=== PATIENT | male | born 1955 | race Caucasian/White ===

== ENCOUNTER 2017-03-26 03:40 | Inpatient (IN) | payer OTHER ==
[~2017-03-26] VITALS: Ht 177.8 cm; Wt 89.6 kg
[~2017-03-26 03:40] MED LIST: NALOXONE HCL 0.4 MG/ML AMP IV PUSH PRN; ONDANSETRON HCL 4 MG/2 ML VIAL IVP PRN; SODIUM CHLOR 0.9% 1000 ML INJ 1,000 ML IV SCH; SODIUM CHLORIDE 0.9% FLUSH 10 ML FLUSH IV FLUSH PRN
[2017-03-26 04:01] VITALS: BP 153/85; PULSE 73; RESP 18; TEMP 98.4; O2SAT 99
[2017-03-26] MEDS ORDERED: MORPHINE SULFATE 2 MG/ML INJ IV PUSH ONE ×2 (05:00→22:45)
[2017-03-26] MEDS ORDERED: MORPHINE SULFATE 2 MG/ML INJ IV PUSH PRN (05:15)
[2017-03-26] MEDS ORDERED: NALOXONE HCL 0.4 MG/ML AMP IV PUSH PRN (05:30)
[2017-03-26] MEDS ORDERED: SODIUM CHLORIDE 0.9% FLUSH 10 ML FLUSH IV FLUSH PRN (05:30)
[2017-03-26] MEDS: ONDANSETRON HCL 4 MG/2 ML VIAL IVP PRN ×2 (05:35→14:13)
[2017-03-26] MEDS: SODIUM CHLOR 0.9% 1000 ML INJ 1,000 ML IV SCH ×3 (05:39→23:42)
[2017-03-26 07:47] VITALS: BP 159/81; PULSE 66; RESP 12; TEMP 95.6; O2SAT 99
--- NOTE | 2017-03-26 08:20 | HHI.HP ---
HPI Service [facility] Hospitalists Primary Care Physician No Primary Care Physician Admission Diagnosis Diagnoses: Chief Complaint: Abdominal pain Travel History International Travel<30 Days: No Contact w/Intl Traveler <30 Da: No Traveled to Known Affected Are: No History of Present Illness This is a pleasant 61 y/o male initially seen at [facility], due to complains of onset of diffuse abdominal pain about 6 PM tonight. He has had significant nausea and vomiting and some diarrhea with this. He rates pain 7-8 out of 10. He denies any prior surgical history. He does smoke cigarettes and drinks alcohol occasionally. He has never had an episode like this before. Seen in his bedroom, stable in the presence of his Mrs. Kat Camilo. Review of Systems Constitutional: DENIES: Fever, Chills, Change in appetite Endocrine: DENIES: Heat/cold intolerance Eyes: DENIES: Blurred vision, Eye pain Gastrointestinal: COMPLAINS OF: Abdominal pain Except as stated in HPI: all other systems reviewed are Neg Past Family Social History Past Medical History Denies significant Past Medical History Past Surgical History NO previous Surgery Reported Medications No previous Medicines Allergies: Coded Allergies: No Known Allergies (Unverified , 03/25/17) Active Ordered Medications Current Medications Medications (Trade) Dose Ordered Sig/Sara Route Start Time Stop Time Status Last Admin Sodium Chloride 1,000 ml @ 100 mls/hr Q10H IV 03/26/17 05:30 03/26/17 05:39 (Morphine Inj) 2 mg Q3H PRN IV PUSH 03/26/17 05:30 (Narcan Inj) 0.4 mg UNSCH PRN IV PUSH 03/26/17 05:30 (Zofran Inj) 4 mg Q6H PRN IVP 03/26/17 05:30 03/26/17 05:35 (NS Flush) 2 ml UNSCH PRN IV FLUSH 03/26/17 05:30 (NS Flush) 2 ml BID IV FLUSH 03/26/17 09:00 (Flu (Quadrivalent) Vaccine Inj) 0.5 ml ONCE ONCE IM 03/27/17 10:00 03/27/17 10:01 Family History Asked and denies. Social History Lives with his Tobacco dependence 1 pack daily 40 Pack year history. Occasional alcohol use Physical Exam Vital Signs Vital Signs Date Time Temp Pulse Resp B/P (MAP) Pulse Ox O2 Delivery O2 Flow Rate FiO2 03/26/17 07:47 95.6 66 12 159/81 (107) 99 03/26/17 04:01 98.4 73 18 153/85 (107) 99 Physical Exam GENERAL: Well-developed, No acute distress. SKIN: Focused skin assessment warm/dry. HEAD: Atraumatic. Normocephalic. EYES: Pupils equal and round. No scleral icterus. No injection or drainage. ENT: No nasal bleeding or discharge. Mucous membranes pink and moist. NECK: Trachea midline. No JVD. CARDIOVASCULAR: Regular rate and rhythm. No murmur appreciated. RESPIRATORY: No accessory muscle use. Clear to auscultation. Breath sounds equal bilaterally. GASTROINTESTINAL: Abdomen soft, moderate diffuse tenderness palpation, nondistended. Hepatic and splenic margins not palpable. No rebound or guarding MUSCULOSKELETAL: No obvious deformities. No clubbing. No cyanosis. No edema. NEUROLOGICAL: Awake and alert. No obvious cranial nerve deficits. Motor grossly within normal limits. Normal speech. PSYCHIATRIC: Appropriate mood and affect; insight and judgment normal. Imaging CT scan of his abdomen and pelvis with IV contrast that revealed small bowel obstruction. Caprini VTE Risk Assessment Caprini VTE Risk Assessment: No/Low Risk (score <= 1) Caprini Risk Assessment Model Point Value = 1 Point Value = 2 Point Value = 3 Point Value = 5 Age 41-60 Minor surgery BMI > 25 kg/m2 Swollen legs Varicose veins or History of unexplained or recurrent spontaneous Oral contraceptives or hormone replacement Sepsis (< 1 month) Serious lung disease, including pneumonia (< 1 month) Abnormal pulmonary function Acute myocardial infarction Congestive heart failure (< 1 month) History of inflammatory bowel disease Medical patient at bed rest Age 61-74 Arthroscopic surgery Major open surgery (> 45 min) Laparoscopic surgery (> 45 min) Malignancy Confined to bed (> 72 hours) Immobilizing plaster cast Central venous access Age >= 75 History of VTE Family history of VTE Factor V Leiden Prothrombin [id number] Lupus anticoagulant Anticardiolipin antibodies Elevated serum homocysteine Heparin-induced thrombocytopenia Other congenital or acquired thrombophilia Stroke (< 1 month) Elective arthroplasty Hip, pelvis, or leg fracture Acute spinal cord injury (< 1 month) Prophylaxis Regimen Total Risk Factor Score Risk Level Prophylaxis Regimen 0-1 Low Early ambulation 2 Moderate Order ONE of the following: *Sequential Compression Device (SCD) *Heparin 5000 units SQ BID 3-4 Higher Order ONE of the following medications: *Heparin 5000 units SQ TID *Enoxaparin/Lovenox 40 mg SQ daily (WT < 150 kg, CrCl > 30 mL/min) *Enoxaparin/Lovenox 30 mg SQ daily (WT < 150 kg, CrCl > 10-29 mL/min) *Enoxaparin/Lovenox 30 mg SQ BID (WT < 150 kg, CrCl > 30 mL/min) AND/OR *Sequential Compression Device (SCD) 5 or more Highest Order ONE of the following medications: *Heparin 5000 units SQ TID (Preferred with Epidurals) *Enoxaparin/Lovenox 40 mg SQ daily (WT < 150 kg, CrCl > 30 mL/min) *Enoxaparin/Lovenox 30 mg SQ daily (WT < 150 kg, CrCl > 10-29 mL/min) *Enoxaparin/Lovenox 30 mg SQ BID (WT < 150 kg, CrCl > 30 mL/min) AND *Sequential Compression Device (SCD) Assessment and Plan Assessment and Plan Small Bowel Obstruction CT scan of his abdomen and pelvis with IV contrast that revealed small bowel obstruction. Discussed by ER Physician at [facility] Armen Muro with General Drum Attendant Doctor Reba who asked to transfer the patient to the main Hospital Patient was given IV fluids, IV Zofran and IV morphine in the emergency department and feels better. Tobacco dependence patient accept Nicotine patch, strongly recommended to stop smoking. DVT prophylaxis with SCDs awaiting if may need procedure. Code Status Full Code. Discussed Condition With Patient and his Mrs. Kat Camilo. Physician Certification 2 Midnight Certification Type: Admission for Inpatient Services Order for Inpatient Services The services are ordered in accordance with Medicare regulations or non- Medicare payer requirements, as applicable. In the case of services not specified as inpatient-only, they are appropriately provided as inpatient services in accordance with the 2-midnight benchmark. Estimated LOS (days): 3 days is the estimated time the patient will need to remain in the hospital, assuming treatment plan goals are met and no additional complications. Post-Hospital Plan: Home Ike Welch MD Mar 26, 2017 8:20 am
[2017-03-26] MEDS: SODIUM CHLORIDE 0.9% FLUSH 10 ML FLUSH IV FLUSH SCH ×2 (08:44→21:00)
[2017-03-26] MEDS ORDERED: SODIUM CHLORIDE 0.9% FLUSH 10 ML FLUSH IV FLUSH SCH (09:00)
[2017-03-26] MEDS: MORPHINE SULFATE 2 MG/ML INJ IV PUSH PRN ×4 (09:15→19:09)
--- NOTE | 2017-03-26 11:06 | PD.CONS ---
cc: Zach Armendariz MD HPI Service General Surgery Consult Requested By Dr. [place] Reason for Consult Small bowel obstruction Primary Care Physician No Primary Care Physician History of Present Illness This is a 61-year-old male with no past medical history who developed severe abdominal pain around 6 PM last night. The patient reports the pain as sharp and radiated a 7 out of 10. The patient does have associated nausea, vomiting and diarrhea. The patient denies any sick contacts. The patient and his had the same meal prior to the onset of abdominal pain. The patient had also ran 3 miles just before onset of abdominal pain. He exercises on a daily basis. A CT abdomen and pelvis was obtained which shows a small bowel obstruction in the proximal bowel with no abscess or pneumoperitoneum. The patient does have a mildly elevated white blood cell count. A General Surgery consultation has been requested for evaluation of small bowel obstruction. Review of Systems Constitutional: COMPLAINS OF: Change in appetite, DENIES: Weight loss Endocrine: DENIES: Polydipsia, Polyuria, Polyphagia Eyes: DENIES: Diplopia Ears, nose, mouth, throat: DENIES: Hearing loss Respiratory: DENIES: Cough Cardiovascular: DENIES: Chest pain, Palpitations Gastrointestinal: COMPLAINS OF: Abdominal pain, Diarrhea, Nausea, Vomiting Genitourinary: DENIES: Urinary frequency, Hematuria Musculoskeletal: DENIES: Joint pain Integumentary: DENIES: Abnormal pigmentation Hematologic/lymphatic: DENIES: Bruising Immunologic/allergic: DENIES: Eczema Neurologic: DENIES: Headache, Localized weakness Psychiatric: DENIES: Mood changes, Depression, Hallucinations Past Family Social History Past Medical History None Past Surgical History None Reported Medications None Allergies: Coded Allergies: No Known Allergies (Unverified , 03/25/17) Active Ordered Medications Current Medications Medications (Trade) Dose Ordered Sig/Sara Route Start Time Stop Time Status Last Admin Sodium Chloride 1,000 ml @ 100 mls/hr Q10H IV 03/26/17 05:30 03/26/17 05:39 (Morphine Inj) 2 mg Q3H PRN IV PUSH 03/26/17 05:30 (Narcan Inj) 0.4 mg UNSCH PRN IV PUSH 03/26/17 05:30 (Zofran Inj) 4 mg Q6H PRN IVP 03/26/17 05:30 03/26/17 05:35 (NS Flush) 2 ml UNSCH PRN IV FLUSH 03/26/17 05:30 (NS Flush) 2 ml BID IV FLUSH 03/26/17 09:00 03/26/17 08:44 (Flu (Quadrivalent) Vaccine Inj) 0.5 ml ONCE ONCE IM 03/27/17 10:00 03/27/17 10:01 Family History No known family history of esophageal, stomach or rectal cancer. Social History Positive tobacco use----1ppd Positive EtOH use; socially--- not daily Denies illicit drug use ; works from home Physical Exam Vital Signs Vital Signs Date Time Temp Pulse Resp B/P (MAP) Pulse Ox O2 Delivery O2 Flow Rate FiO2 03/26/17 07:47 95.6 66 12 159/81 (107) 99 03/26/17 04:01 98.4 73 18 153/85 (107) 99 Physical Exam GENERAL: 61 year old male in minimal acute distress. SKIN: Warm and dry. HEAD: Atraumatic. Normocephalic. EYES: Pupils equal and round. No scleral icterus. No injection or drainage. ENT: No nasal bleeding or discharge. Mucous membranes pink and moist. NECK: Trachea midline. CARDIOVASCULAR: Regular rate and rhythm. RESPIRATORY: No accessory muscle use. Clear to auscultation. Breath sounds equal bilaterally. GASTROINTESTINAL: Abdomen soft, minimally distended; Diffuse abdominal tenderness with palpation. No visible scars on abdomen. MUSCULOSKELETAL: Extremities without clubbing, cyanosis, or edema. No obvious deformities. NEUROLOGICAL: Awake and alert. No obvious cranial nerve deficits. Motor grossly within normal limits. Five out of 5 muscle strength in the arms and legs. Normal speech. PSYCHIATRIC: Appropriate mood and affect; insight and judgment normal. Assessment and Plan Assessment and Plan 61 year old male with abdominal pain; SBO visualized on CT abdomen/pelvis; likely gastroenteritis -Continue IVF -Morphine as needed -Zofran as needed -Okay for ice chips and popsicles -Unlikely small bowel obstruction--- patient has no abdominal surgical history and no mass/tumor identified on CT scan; patient having diarrhea -Discussed with (Kat) -Will continue non operative treatment -Thank you for this consult; We will continue to follow I CERTIFY AND ATTEST THAT I PERSONALLY EXAMINED THE PATIENT. MS MAHAJAN DOCUMENTED OUR VISIT. HIS CLINICAL HISTORY MORE COMPATIBLE WITH VGE - HE STARTED FIRST WITH LOOSE BMS/ DIARRHEA THEN DEVELOPED N/V. REPORTS ABDOMINAL PAIN IS CRAMPY AND LOCALIZED TO HIS ABDOMINAL WALL MUSCLES. HIS BELLY IS SOFT, THERE IS REBOUND OR GUARDING. VITAL SIGNS ARE NORMAL, NO FEVERS. WBC IS ELEVATED. I REVIEWED CT SCAN. I RECOMMENDED OBSERVATION AT THIS TIME. IF HE IMPROVES WILL RESUME DIET. IF HE WORSENS WILL CONSIDER ADDITIONAL TESTING AND/OR LAPAROSCOPY. D/W AND PATIENT AT BEDSIDE AND THEY AGREE. ZACH ARMENDARIZ MD FACS Discussed Condition With Dr. Armendariz Mr. and . Ton Mahajan,Bridget JOY Mar 26, 2017 11:06 Zach Armendariz MD Mar 30, 2017 12:39
[2017-03-26 17:20] VITALS: BP 100/81; PULSE 123; RESP 21; TEMP 95.7; O2SAT 93
[2017-03-26 20:57] VITALS: BP 86/61; PULSE 122; RESP 19; TEMP 97.8; O2SAT 98
[2017-03-26] MEDS ORDERED: SODIUM CHLORID 0.9% 500 ML INJ 500 ML IV ONE (21:30)
[2017-03-26 22:11] VITALS: BP 112/79; PULSE 111; RESP 19; O2SAT 94
[2017-03-26 23:21] LABS: AUTOMATED NEUTROPHIL # 30.4 TH/MM3 (1.8-7.7); BASOPHIL # 0.1 TH/MM3 (0-0.2); BASOPHIL % 0.3 % (0.0-2.0); HEMATOCRIT 63.8 % (39.0-51.0); LYMPH % 4.3 % (9.0-44.0); LYMPHOCYTE # 1.5 TH/MM3 (1.0-4.8); MEAN CELL VOLUME 93.9 FL (80.0-100.0); MEAN CORPUSCULAR HEMOGLOBIN 32.4 PG (27.0-34.0); MEAN CORPUSCULAR HGB CONC 34.5 % (32.0-36.0); MONO % 6.1 % (0.0-8.0); NEUT % 89.3 % (16.0-70.0); PLATELET COUNT 185 TH/MM3 (150-450); RED BLOOD COUNT 6.79 MIL/MM3 (4.50-5.90); RED CELL DISTRIBUTION WIDTH 14.3 % (11.6-17.2); WHITE BLOOD COUNT 34.1 TH/MM3 (4.0-11.0)
[2017-03-26 23:24] LABS: HEMO FLAGS AUTO DIFF
[2017-03-26 23:57] LABS: BANDS 8 % (0-6); CORRECTED NUCLEATED RBC 1 /100 WBC (0-0); NEUTROPHIL # MANUAL DIFF 32.1 TH/MM3 (1.8-7.7); POLYS (SEG NEUTROPHILS) 86 % (16-70); WBC DIFF SAMPLE 100
[2017-03-26 23:59] LABS: SCAN/DIFF FINAL DIFF MANUAL
[2017-03-27] VITALS (12 sets, daily range): BP systolic 102–111; BP diastolic 60–89; PULSE 105–121; RESP 16–35; TEMP 94.1–98.8; O2SAT 93–100
[2017-03-27] LABS: PLATELET ESTIMATE SMEAR NORMAL (NORMAL); PLATELET MORPHOLOGY NORMAL (NORMAL)
[2017-03-27] MEDS: ONDANSETRON HCL 4 MG/2 ML VIAL IVP PRN (03:19)
[2017-03-27] MEDS: MORPHINE SULFATE 2 MG/ML INJ IV PUSH PRN ×3 (03:27→08:50)
[2017-03-27] MEDS: PIPERACIL-TAZO 4.5 GM PREMIX 100 ML IV SCH ×2 (05:30→10:54)
[2017-03-27 06:01] LABS: AUTOMATED NEUTROPHIL # 27.3 TH/MM3 (1.8-7.7); BASOPHIL # 0.1 TH/MM3 (0-0.2); BASOPHIL % 0.3 % (0.0-2.0); HEMATOCRIT 62.9 % (39.0-51.0); LYMPH % 5.1 % (9.0-44.0); LYMPHOCYTE # 1.6 TH/MM3 (1.0-4.8); MEAN CORPUSCULAR HEMOGLOBIN 31.4 PG (27.0-34.0); MEAN CORPUSCULAR HGB CONC 32.7 % (32.0-36.0); NEUT % 88.6 % (16.0-70.0); PLATELET COUNT 220 TH/MM3 (150-450); RED BLOOD COUNT 6.56 MIL/MM3 (4.50-5.90); RED CELL DISTRIBUTION WIDTH 14.3 % (11.6-17.2); WHITE BLOOD COUNT 30.8 TH/MM3 (4.0-11.0)
[2017-03-27 06:04] LABS: HEMO FLAGS AUTO DIFF
[2017-03-27] MEDS: metroNIDAZOLE 500 MG INJ 100 ML IV SCH ×3 (06:05→20:58)
[2017-03-27 07:32] LABS: BICARBONATE 19.6 MEQ/L (21.0-32.0); POTASSIUM 4.4 MEQ/L (3.5-5.1)
[2017-03-27 08:19] LABS: BANDS 13 % (0-6); MYELOCYTES 1 % (0-0); NEUTROPHIL # MANUAL DIFF 27.4 TH/MM3 (1.8-7.7); PLATELET ESTIMATE SMEAR NORMAL (NORMAL); PLATELET MORPHOLOGY NORMAL (NORMAL); POLYS (SEG NEUTROPHILS) 75 % (16-70); SCAN/DIFF FINAL DIFF MANUAL; TOXIC VACUOLATION PRESENT (NONE SEEN); WBC DIFF SAMPLE 100
--- NOTE | 2017-03-27 08:23 | RADRPT ---
EXAM DATE/TIME: 03/27/2017 07:45 [facility] COMPARISON: CT ABDOMEN & PELVIS W CONTRAST, March 26, 2017, 0:23. INDICATIONS : Abdominal pain, concern for obstruction. MEDICAL HISTORY : None. SURGICAL HISTORY : None. ENCOUNTER: Initial ACUITY: 1 day PAIN SCORE: 8/10 LOCATION: Lower abdomen. FINDINGS: Portable supine views of the abdomen show gas distended loops of small bowel throughout the abdomen. The largest loop measures 3 cm in diameter. Gas is seen within the cecum. The colon is not distended. The appearance is similar to the prior study. No organomegaly observed. No abnormal calcifications. Lung bases are clear. Bony structures are unremarkable. CONCLUSION: Unchanged dilatation of the small bowel in a pattern suggesting small bowel obstruction. Alf Floyd Jr., MD on March 27, 2017 at 8:15 Board Certified Radiologist. This report was verified electronically.
--- NOTE | 2017-03-27 08:32 | HHI.PR ---
Subjective Remarks This is a pleasant 61 y/o male initially seen at [facility], due to complains of onset of diffuse abdominal pain about 6 PM tonight. He has had significant nausea and vomiting and some diarrhea with this. He rates pain 7-8 out of 10. He denies any prior surgical history. He does smoke cigarettes and drinks alcohol occasionally. He has never had an episode like this before. Seen in his bedroom, patient uncomfortable, after discuss with nurse in the room and with General Surgery MANNEQUIN DECORATOR the patient increased his WBC count now with left shift and Bands, worsening, with Acute abdomen, seen by General client application support specialist Doctor Maureen and recommended for OR at this time, he is been discussed with Doctor Rachell ID specialist he was started on Zosyn and Metronidazole, he is in Sepsis and early septic Shock, will give IV fluids 2000 ml and as per General Surgery OR this am. Objective Vital Signs Date Time Temp Pulse Resp B/P (MAP) Pulse Ox O2 Delivery O2 Flow Rate FiO2 03/27/17 06:10 20 03/27/17 03:35 113 03/27/17 03:30 108/89 (95) 03/26/17 23:47 20 03/26/17 22:11 111 19 112/79 (90) 94 03/26/17 20:57 97.8 122 19 86/61 (69) 98 03/26/17 17:20 95.7 123 21 100/81 (87) 93 I/O 03/26/17 03/26/17 03/26/17 03/27/17 03/27/17 03/27/17 07:00 15:00 23:00 07:00 15:00 23:00 Intake Total 900 ml 100 ml 100 ml Output Total 200 ml Balance 700 ml 100 ml 100 ml Intake IV Total 900 ml 100 ml 100 ml Output Urine Total 200 ml Bladder Scan Volume Amount 12 ml Result Diagram: 03/27/1752103/27/[address] scan of his abdomen and pelvis with IV contrast that revealed small bowel obstruction. Procedures None Other Results Laboratory Tests Test 03/26/17 23:03 03/27/17 05:22 Nucleated Red Blood Cells 1 /100 WBC Hematology Comments White Blood Count 30.8 TH/MM3 Red Blood Count 6.56 MIL/MM3 Hemoglobin 20.6 GM/DL Hematocrit 62.9 % Mean Corpuscular Volume 96.0 FL Mean Corpuscular Hemoglobin 31.4 PG Mean Corpuscular Hemoglobin Concent 32.7 % Red Cell Distribution Width 14.3 % Platelet Count 220 TH/MM3 Mean Platelet Volume 11.4 FL Neutrophils (%) (Auto) 88.6 % Lymphocytes (%) (Auto) 5.1 % Monocytes (%) (Auto) 6.0 % Eosinophils (%) (Auto) 0.0 % Basophils (%) (Auto) 0.3 % Neutrophils # (Auto) 27.3 TH/MM3 Lymphocytes # (Auto) 1.6 TH/MM3 Monocytes # (Auto) 1.9 TH/MM3 Eosinophils # (Auto) 0.0 TH/MM3 Basophils # (Auto) 0.1 TH/MM3 CBC Comment AUTO DIFF Differential Total Cells Counted 100 Neutrophils % (Manual) 75 % Band Neutrophils % 13 % Lymphocytes % 5 % Monocytes % 6 % Neutrophils # (Manual) 27.4 TH/MM3 Myelocytes 1 % Differential Comment FINAL DIFF MANUAL Toxic Vacuolation PRESENT Platelet Estimate NORMAL Platelet Morphology Comment NORMAL Blood Urea Nitrogen 31 MG/DL Creatinine 3.07 MG/DL Random Glucose 137 MG/DL Calcium Level 8.9 MG/DL Sodium Level 141 MEQ/L Potassium Level 4.4 MEQ/L Chloride Level 108 MEQ/L Carbon Dioxide Level 19.6 MEQ/L Anion Gap 13 MEQ/L Estimat Glomerular Filtration Rate 21 ML/MIN Objective Remarks GENERAL: Well-developed, Severe abdominal pain, and Severe distress. SKIN: Focused skin assessment warm/dry. HEAD: Atraumatic. Normocephalic. EYES: Pupils equal and round. No scleral icterus. No injection or drainage. ENT: No nasal bleeding or discharge. Mucous membranes dry. NECK: Trachea midline. No JVD. CARDIOVASCULAR: Regular rate and rhythm. No murmur appreciated. RESPIRATORY: No accessory muscle use. Clear to auscultation. Breath sounds equal bilaterally. GASTROINTESTINAL: Distended, hard to palpation, self guarding and rebound tenderness positive. MUSCULOSKELETAL: No obvious deformities. No clubbing. No cyanosis. No edema. NEUROLOGICAL: Awake and alert. in severe pain. PSYCHIATRIC: Appropriate mood and affect. Medications and IVs Current Medications Medications (Trade) Dose Ordered Sig/Sara Route Start Time Stop Time Status Last Admin Sodium Chloride 1,000 ml @ 100 mls/hr Q10H IV 03/26/17 05:30 03/26/17 23:42 (Narcan Inj) 0.4 mg UNSCH PRN IV PUSH 03/26/17 05:30 (Zofran Inj) 4 mg Q6H PRN IVP 03/26/17 05:30 03/27/17 03:19 (NS Flush) 2 ml UNSCH PRN IV FLUSH 03/26/17 05:30 (NS Flush) 2 ml BID IV FLUSH 03/26/17 09:00 03/26/17 08:44 (Flu (Quadrivalent) Vaccine Inj) 0.5 ml ONCE ONCE IM 03/27/17 10:00 03/27/17 10:01 (Morphine Inj) 4 mg Q3H PRN IV PUSH 03/26/17 14:30 03/27/17 06:05 Piperacillin Sod/ Tazobactam Sod 100 ml @ 200 mls/hr Q6H IV 03/27/17 06:00 03/27/17 05:30 Metronidazole 100 ml @ 100 mls/hr Q8H IV 03/27/17 05:00 03/27/17 06:05 A/P Assessment and Plan 1. Small Bowel Obstruction CT scan of his abdomen and pelvis with IV contrast that revealed small bowel obstruction. Discussed by ER Physician at [place] doctor Armen Mejia with General Automation Mechanic Doctor Reba who asked to transfer the patient to the main Hospital Seen in his bedroom and discussed with Nurse and with General Surgery MANNEQUIN DECORATOR, at this time Septic patient asked for lactic acid, continue Zosyn and [place]ronidazole[place] [address], developed hypotension, also has Acute Kidney injury, he is not been receiving his IV fluids will give a bolus of 2000 ml of NS for Surgical purposes, asked for Infectious disease specialist, follow blood cultures. 2. Acute Kidney Injury pre renal azotemia giving IV fluids and following renal function, patient dehydrated. Wood cath placed 3. Tobacco dependence patient accept Nicotine patch, strongly recommended to stop smoking. DVT prophylaxis with SCDs awaiting if may need procedure. Code Status Full Code. Discussed Condition With Patient and his Mrs. Kat Camilo.all questions answered to the best of my abilities Discussed with nurse Miss Stovall and General Surgery MANNEQUIN DECORATOR. discussed with Infectious Disease specialist doctor Samara Lovett. Discharge Planning Once cleared by Specialists. Ike Welch MD Mar 27, 2017 08:32
--- NOTE | 2017-03-27 08:34 | HHI.PR ---
cc: Akash Gaffney MD Subjective Subjective Notes DAILY PROGRESS NOTE FOR SURGICAL ATTENDING, DR. AKASH GAFFNEY Restless throughout the night Increased pain Not able to lay flat at bedside Objective Vitals/I&O Vital Signs Date Time Temp Pulse Resp B/P (MAP) Pulse Ox O2 Delivery O2 Flow Rate FiO2 03/27/17 06:10 20 03/27/17 03:35 113 03/27/17 03:30 108/89 (95) 03/26/17 22:11 94 03/26/17 20:57 97.8 Labs Laboratory Tests Test 03/26/17 23:03 03/27/17 05:22 White Blood Count 34.1 30.8 Red Blood Count 6.79 6.56 Hemoglobin 22.0 20.6 Hematocrit 63.8 62.9 Mean Corpuscular Volume 93.9 96.0 Mean Corpuscular Hemoglobin 32.4 31.4 Mean Corpuscular Hemoglobin Concent 34.5 32.7 Red Cell Distribution Width 14.3 14.3 Platelet Count 185 220 Mean Platelet Volume 12.2 11.4 Neutrophils (%) (Auto) 89.3 88.6 Lymphocytes (%) (Auto) 4.3 5.1 Monocytes (%) (Auto) 6.1 6.0 Eosinophils (%) (Auto) 0.0 0.0 Basophils (%) (Auto) 0.3 0.3 Neutrophils # (Auto) 30.4 27.3 Lymphocytes # (Auto) 1.5 1.6 Monocytes # (Auto) 2.1 1.9 Eosinophils # (Auto) 0.0 0.0 Basophils # (Auto) 0.1 0.1 CBC Comment AUTO DIFF AUTO DIFF Differential Total Cells Counted 100 100 Neutrophils % (Manual) 86 75 Band Neutrophils % 8 13 Lymphocytes % 4 5 Monocytes % 2 6 Neutrophils # (Manual) 32.1 27.4 Nucleated Red Blood Cells 1 Differential Comment FINAL DIFF MANUAL FINAL DIFF MANUAL Platelet Estimate NORMAL NORMAL Platelet Morphology Comment NORMAL NORMAL Hematology Comments Myelocytes 1 Toxic Vacuolation PRESENT Blood Urea Nitrogen 31 Creatinine 3.07 Random Glucose 137 Calcium Level 8.9 Sodium Level 141 Potassium Level 4.4 Chloride Level 108 Carbon Dioxide Level 19.6 Anion Gap 13 Estimat Glomerular Filtration Rate 21 Date/Time Source Procedure Growth Status 03/27/17 05:36 Blood Peripheral Aerobic Blood Culture Pending Received 03/27/17 05:36 Blood Peripheral Anaerobic Blood Culture Pending Received Cardiovascular: Regular Lungs: Clear Abdomen: Other (distended; tender throughout ) Extremities: No edema A/P Problem List: (1) Abdominal pain, acute ICD Codes: R10.9 - Unspecified abdominal pain Status: Acute (2) Elevated WBC count ICD Codes: D72.829 - Elevated white blood cell count, unspecified (3) SBO (small bowel obstruction) ICD Codes: K56.609 - Unspecified intestinal obstruction, unspecified as to partial versus complete obstruction Status: Acute (4) Abnormal CT of the abdomen ICD Codes: R93.5 - Abnormal findings on diagnostic imaging of other abdominal regions, including retroperitoneum Status: Acute Assessment and Plan 61 year old male with abdominal pain; CT suggests SBO -NPO -Continue IVF -Continue pain medications -KUB this AM -Unable to lay flat for bladder scan; has not voided since yesterday afternoon -Will insert Wood catheter for accurate I&Os -WBC increase; BUN/Cr increased -Plan for OR intervention this AM -NPO -Obtain consents Attending Statement NOTE FOR SURGICAL ATTENDING, DR. AKASH GAFFNEY Patient has rigid abdomen Diffuse abdominal pain with rebound and guarding. Unable to lay flat because of the rigidity and abdominal pain Elevated white count Low urinary output Discussed with the patient and his at the bedside. Unfortunately he has a clinical picture of possible ischemic bowel plan diagnostic laparoscopy possible open. This was explained to the patient and he asked me to take him to the operating room I agree with above assessment and plan. The exam, history, and the medical decision-making described in the above note were completed with the assistance of the mid-level provider. I reviewed and agree with the findings presented. I attest that I had a [id number] encounter with the patient on the same day, and personally performed and documented my assessment and findings in the medical record. The following services were provided during this hospital visit: Chart data review, vital sign assessments/reviewing monitor data Review of consultations notes if present. Medication orders/review and/or management Ordering and/or reviewing lab tests Ordering and/or interpreting/reviewing x-rays and/or diagnostic studies Care of the patient and discussion of the patient with the care team Documentation time To help prompt me to consider important information that might be impacting today's encounter and assessment, information from prior notes written by myself or my colleagues may have been "brought forward/copy and pasted" into today's note. Problem Qualifiers (1) Elevated WBC count: Qualified Codes: D72.825 - Bandemia Bridget Mahajan Mar 27, 2017 08:34 Akash Gaffney MD Mar 27, 2017 10:19
[2017-03-27] MEDS ORDERED: SODIUM CHLOR 0.9% 1000 ML INJ 1,000 ML IV ONE ×2 (08:45→10:00)
[2017-03-27] MEDS: SODIUM CHLORIDE 0.9% FLUSH 10 ML FLUSH IV FLUSH SCH ×2 (09:00→20:57)
[2017-03-27] MEDS ORDERED: INFLUENZA VIRUS VACCINE (QUADRIVALENT) 0.5 ML SYR IM ONE (10:00)
[2017-03-27] MEDS ORDERED: VASOPRESSIN 20 UNITS/ML VIAL (IVTITR) ONE (10:46)
[2017-03-27 11:25] LABS: BLOOD GAS BASE EXCESS -12.4 mmol/L (-2-2); BLOOD GAS CARBOXYHEMOGLOBIN 1.3 % (0-4); BLOOD GAS HCO3 14 mmol/L (22-26); BLOOD GAS METHEMOGLOBIN 1.2 % (0-2); BLOOD GAS O2 HGB SATURATION 97 % (90-100); BLOOD GAS PCO2 34 mmHg (38-42); BLOOD GAS PO2 244 mmHg (61-120); BLOOD GAS TOTAL HGB 13.6 G/DL (12.0-16.0); CRITICAL VALUE YES; OXYGEN DEVICE VENTILATOR; TEMP CORR TO 98.6
[2017-03-27 11:26] LABS: STAT YES
[2017-03-27] MEDS ORDERED: DO NOT ADM ANY ANTICOAGULANT DRUGS PRN (11:58)
[2017-03-27] MEDS ORDERED: SODIUM CHLORID 0.9% 500 ML INJ 500 ML IV ONE (12:00)
[2017-03-27] MEDS ORDERED: PHENYLEPHRINE HCL 10 MG/ML VIAL IV ONE (12:00)
[2017-03-27] MEDS ORDERED: LACTATED RINGER'S 1000 ML INJ 2,000 ML IV ONE (12:00)
[2017-03-27] MEDS ORDERED: DEXAMETHASONE SOD PHOS 4 MG/ML VIAL IV ONE (12:00)
[2017-03-27] MEDS ORDERED: ROCURONIUM INJ 50 MG/5 ML SYRINGE IV PUSH ONE (12:00)
[2017-03-27] MEDS ORDERED: LIDOCAINE HCL 1% PF 5 ML AMPULE OTHER ONE (12:00)
[2017-03-27] MEDS ORDERED: MIDAZOLAM HCL 2 MG/2 ML VIAL IV ONE (12:00)
[2017-03-27] MEDS ORDERED: PHENYLEPH/NS 1000 MCG/10 ML SYR IV ONE (12:00)
[2017-03-27] MEDS ORDERED: SODIUM CHLOR 0.9% 250 ML INJ 250 ML IV ONE (12:00)
[2017-03-27] MEDS: PANTOPRAZOLE SODIUM 40 MG VIAL IV PUSH SCH (12:00)
[2017-03-27] MEDS ORDERED: PROPOFOL 200 MG/20 ML AMP IV ONE (12:00)
[2017-03-27] MEDS ORDERED: Post-op Orders (for Pharmacy) MISC XX ONE (12:00)
--- NOTE | 2017-03-27 12:11 | HHI.PR ---
cc: Omari Reddy MD Immediate Post Op Note Procedure Date: Mar 27, 2017 Pre Op Diagnosis: (1) Acute renal failure (2) SBO (small bowel obstruction) (3) Abnormal CT of the abdomen (4) Elevated WBC count (5) Abdominal pain, acute Post Op Diagnosis: (1) Ischemic necrosis of small bowel (2) Acute massive necrosis of intestine (3) SBO (small bowel obstruction) (4) Elevated WBC count Surgeon: Omari Reddy Box Stapler(s): Please refer to the OR record Procedure: Exploratory laparotomy Resection of 25-30 cm ischemic necrosis of small bowel Application of temporary abdominal closure device VAC wound therapy Findings: Necrosis of a fair amount of small bowel. One band of adhesions twisting the small bowel Complications: None Specimen(s) removed: Small bowel Estimated blood loss: 50 cc Anesthesia: General Drains: None, Other (VAC device) IVF Tourniquet time (min at mmHg) Please refer to or record Patient to: ISC Patient Condition: Critical Implant/Devices: SEE IMPLANT LOG (if applicable) Date/Time of Procedure: SEE SURGICAL CARE RECORD Omari Reddy MD Mar 27, 2017 12:11
[2017-03-27] MEDS ORDERED: PROPOFOL 1000 MG/100 ML INJ 100 ML ONE (12:14)
[2017-03-27] MEDS ORDERED: TERBUTALINE INJ 1 MG/ML AMP SQ PRN (12:30)
[2017-03-27] MEDS: SODIUM CHLOR 0.9% 1000 ML INJ 1,000 ML IV SCH (12:30)
[2017-03-27] MEDS: PROPOFOL 1000 MG/100 ML IV PRN ×2 (12:30→16:13)
[2017-03-27] MEDS ORDERED: PHENYLEPHRINE 40 MG in D5W 500 ML IV PRN (12:30)
[2017-03-27 12:56] LABS: BLOOD GAS BASE EXCESS -7.1 mmol/L (-2-2); BLOOD GAS CARBOXYHEMOGLOBIN 1.1 % (0-4); BLOOD GAS HCO3 20 mmol/L (22-26); BLOOD GAS METHEMOGLOBIN 1.2 % (0-2); BLOOD GAS O2 HGB SATURATION 97 % (90-100); BLOOD GAS OXYGEN CONTENT 21.4 Vol % (12.0-20.0); BLOOD GAS PCO2 53 mmHg (38-42); BLOOD GAS PO2 174 mmHg (61-120); BLOOD GAS TOTAL HGB 15.5 G/DL (12.0-16.0); CRITICAL VALUE YES; OXYGEN DEVICE VENTILATOR; TEMP CORR TO 98.6
[2017-03-27 12:57] LABS: DRAW SITE ART LINE; FIO2 50 %; STAT NO; VENT SETTINGS IMV14/500PS10
--- NOTE | 2017-03-27 14:14 | EKG ---
Date Performed: 03/27/2017 Time Performed: 10:24:35 PTAGE: 61 years EKG: SINUS TACHYCARDIA NONSPECIFIC ST DEPRESSION ABNORMAL ECG NO PREVIOUS TRACING DOCTOR: Yuval Willson Interpretating Date/Time 03/27/2017 14:13:42
--- NOTE | 2017-03-27 14:16 | RADRPT ---
EXAM DATE/TIME: 03/27/2017 13:28 [place] COMPARISON: No previous studies available for comparison. INDICATIONS : Status post central line placement. MEDICAL HISTORY : None. SURGICAL HISTORY : None. ENCOUNTER: Subsequent ACUITY: 2 days PAIN SCORE: Non-responsive. LOCATION: Bilateral chest FINDINGS: A single portable frontal view of the chest shows an endotracheal tube with the tip 5 cm proximal to shiraz. A right internal jugular vein central venous line with the tip in the superior vena cava. Efe ogastric tube tip courses off the inferior margin of the film. Left basilar atelectasis. Right lung i s clear. No infiltrates or effusions. Heart is normal in size. CONCLUSION: 1. Right-sided central line in good position without pneumothorax. 2. Left basilar atelectasis. Alf Floyd Jr., MD on March 27, 2017 at 14:14 Board Certified Radiologist. This report was verified electronically.
--- NOTE | 2017-03-27 14:23 | MP ---
cc: YEIMYOMARI DATE OF SURGERY 03/27/2017 PREOPERATIVE DIAGNOSIS Acute abdomen, septic shock, elevated white count. POSTOPERATIVE DIAGNOSIS Ischemic necrosis of small bowel, approximately 35 cm of distal jejunum and ileum. PROCEDURE Exploratory laparotomy with resection of small bowel with application of VAC device. ANESTHESIA General. SURGEON Dr. Reddy. INDICATIONS This is a 62-year-old gentleman who was admitted to the hospital. He had a decline over his clinical condition, was thought to be gastroenteritis overnight. He had a markedly elevated white count and creatinine, when I first saw him early in the morning, he was fairly tender and in need of immediate operative intervention. This was arranged as soon as possible in the operating room. In the operating room, the patient did become somewhat unresponsive right before anesthesia. The anesthesiologist intubated the patient and placed a central line, arterial line and was resuscitating. PROCEDURE The patient in the operating room after anesthesia and resuscitation and monitors placed. We make a midline incision to the right of the umbilicus. The abdomen is entered. See he has bloody stained fluid in the abdomen and it is obvious that he has necrosis of a fair amount of small bowel. It appears to be from one adhesion band from the omentum down to the retroperitoneum where the bowel had twisted around this. This was released with harmonic scalpel. Unfortunately, none of the bowel is viable and for this reason stapler was brought around the proximal ischemic part to where a normal appearing bowel is in the distal segment about 30 cm or so. The mesentery is taken down with harmonic scalpel without any bleeding. The specimen is then passed off the field, larger vessel was tied off with silk. The second specimen must be taken at the distal segment as it is still ischemic. We then place the NG tube into the stomach right before the pylorus and explore the abdomen, the liver is smooth, peritoneal surface smooth. The gallbladder had some stones, does not appear to be chronically inflamed. He does have adhesions around the gallbladder. His appendix is normal. His ascending colon appears normal. Down the pelvis I see no other pathology. We then irrigate with 3 liters of warm saline. Because of the clinical status of the patient I do not feel comfortable creating an anastomosis. For this reason we place the temporary abdominal closure device through the VAC device knowing we were coming back for a second look in a couple days. The VAC appliance was applied with a good seal. The patient returned to the recovery room. Stat portable chest x-ray was done. I talked to Dr. Ernesto Kebede, the protection specialist, about assisting in management of this critically ill patient. I talked to the about the critical nature of his illness and the intraoperative findings somewhat unusual in someone who has never had surgery to have an adhesive band causing this untoward event. We are planning on taking him back to the operating room, already discussed with Dr. Manuel Britton, the initial surgeon involved in the care of the patient as I will be out of town on Thursday. This was all explained to the . Omari Reddy MD JKIRAN/LOS /1:50 PM /2:09 PM [email or web address]
[2017-03-27 15:10] LABS: BLOOD GAS BASE EXCESS -4.6 mmol/L (-2-2); BLOOD GAS CARBOXYHEMOGLOBIN 1.1 % (0-4); BLOOD GAS HCO3 21 mmol/L (22-26); BLOOD GAS METHEMOGLOBIN 0.8 % (0-2); BLOOD GAS O2 HGB SATURATION 96 % (90-100); BLOOD GAS PCO2 42 mmHg (38-42); BLOOD GAS PO2 112 mmHg (61-120); BLOOD GAS TOTAL HGB 16.2 G/DL (12.0-16.0); TEMP CORR TO 98.6
[2017-03-27 15:11] LABS: CRITICAL VALUE NO; OXYGEN DEVICE VENTILATOR; VENT SETTINGS SEE COMMENTS
[2017-03-27 15:12] LABS: DRAW SITE ART LINE; FIO2 40 %; STAT NO
--- NOTE | 2017-03-27 15:35 | PD.CONS ---
[facility] Service Critical Care Medicine Consult Requested By General Surgery Reason for Consult Septic Shock Primary Care Physician No Primary Care Physician History of Present Illness 61 y/o man developed septic shock and required emergency small bowel resection for acute abdomen with intestinal infarction. Severe metabolic acidosis and NOELLE complicating care. Ventilator dependent now. Past Family Social History Allergies: Coded Allergies: No Known Allergies (Unverified , 03/25/17) Past Medical History Past Family Social History Past Medical History Denies significant Past Medical History Past Surgical History NO previous Surgery Reported Medications No previous Medicines Allergies: Coded Allergies: No Known Allergies (Unverified , 03/25/17) Active Ordered Medications Physical Exam Vital Signs Vital Signs Date Time Temp Pulse Resp B/P (MAP) Pulse Ox O2 Delivery O2 Flow Rate FiO2 03/27/17 14:15 100 03/27/17 14:15 100 40 03/27/17 14:00 98 18 100/65 (77) 97 Mechanical Ventilator 03/27/17 14:00 40 03/27/17 13:45 98 18 107/62 (77) 97 Mechanical Ventilator 03/27/17 13:30 102 18 110/58 (75) 97 Mechanical Ventilator 03/27/17 13:15 101 18 116/67 (83) 98 Mechanical Ventilator 03/27/17 13:00 103 18 131/63 (85) 98 Mechanical Ventilator 03/27/17 13:00 97 40 03/27/17 12:50 40 03/27/17 12:45 101 18 136/64 (88) 97 Mechanical Ventilator 03/27/17 12:30 102 18 122/62 (82) 96 Mechanical Ventilator 03/27/17 12:15 109 18 131/60 (83) 97 Mechanical Ventilator 03/27/17 12:10 93 50 03/27/17 12:00 105 134/72 03/27/17 11:55 97.6 97 18 119/56 (77) 94 Mechanical Ventilator 03/27/17 11:55 50 03/27/17 09:32 94.1 121 35 111/77 (88) 97 03/27/17 08:00 96.1 119 18 102/76 (85) 97 03/27/17 06:10 20 03/27/17 03:35 113 03/27/17 03:30 108/89 (95) 03/26/17 23:47 20 03/26/17 22:11 111 19 112/79 (90) 94 10/12/17 20:57 97.8 122 19 86/61 (69) 98 03/26/17 17:20 95.7 123 21 100/81 (87) 93 Laboratory Laboratory Tests Test 03/26/17 23:03 03/27/17 05:22 03/27/17 11:05 03/27/17 12:35 White Blood Count 34.1 30.8 Red Blood Count 6.79 6.56 Hemoglobin 22.0 20.6 Hematocrit 63.8 62.9 Mean Corpuscular Volume 93.9 96.0 Mean Corpuscular Hemoglobin 32.4 31.4 Mean Corpuscular Hemoglobin Concent 34.5 32.7 Red Cell Distribution Width 14.3 14.3 Platelet Count 185 220 Mean Platelet Volume 12.2 11.4 Neutrophils (%) (Auto) 89.3 88.6 Lymphocytes (%) (Auto) 4.3 5.1 Monocytes (%) (Auto) 6.1 6.0 Eosinophils (%) (Auto) 0.0 0.0 Basophils (%) (Auto) 0.3 0.3 Neutrophils # (Auto) 30.4 27.3 Lymphocytes # (Auto) 1.5 1.6 Monocytes # (Auto) 2.1 1.9 Eosinophils # (Auto) 0.0 0.0 Basophils # (Auto) 0.1 0.1 CBC Comment AUTO DIFF AUTO DIFF Differential Total Cells Counted 100 100 Neutrophils % (Manual) 86 75 Band Neutrophils % 8 13 Lymphocytes % 4 5 Monocytes % 2 6 Neutrophils # (Manual) 32.1 27.4 Nucleated Red Blood Cells 1 Differential Comment FINAL DIFF MANUAL FINAL DIFF MANUAL Platelet Estimate NORMAL NORMAL Platelet Morphology Comment NORMAL NORMAL Hematology Comments Myelocytes 1 Toxic Vacuolation PRESENT Blood Urea Nitrogen 31 Creatinine 3.07 Random Glucose 137 Calcium Level 8.9 Sodium Level 141 Potassium Level 4.4 Chloride Level 108 Carbon Dioxide Level 19.6 Anion Gap 13 Estimat Glomerular Filtration Rate 21 Blood Gas Puncture Site DRAWN IN OR ART LINE Blood Gas Patient Temperature 98.6 98.6 Blood Gas HCO3 14 20 Blood Gas Base Excess -12.4 -7.1 Blood Gas Oxygen Saturation 97 97 Arterial Blood pH 7.23 7.19 Arterial Blood Partial Pressure CO2 34 53 Arterial Blood Partial Pressure O2 244 174 Arterial Blood Oxygen Content 19.0 21.4 Arterial Blood Carboxyhemoglobin 1.3 1.1 Arterial Blood Methemoglobin 1.2 1.2 Blood Gas Hemoglobin 13.6 15.5 Oxygen Delivery Device VENTILATOR VENTILATOR Blood Gas Ventilator Setting [id number] Blood Gas Inspired Oxygen 50 Test 03/27/17 15:00 Blood Gas Puncture Site ART LINE Blood Gas Patient Temperature 98.6 Blood Gas HCO3 21 Blood Gas Base Excess -4.6 Blood Gas Oxygen Saturation 96 Arterial Blood pH 7.31 Arterial Blood Partial Pressure CO2 42 Arterial Blood Partial Pressure O2 112 Arterial Blood Oxygen Content 22.0 Arterial Blood Carboxyhemoglobin 1.1 Arterial Blood Methemoglobin 0.8 Blood Gas Hemoglobin 16.2 Oxygen Delivery Device VENTILATOR Blood Gas Ventilator Setting SEE COMMENTS Blood Gas Inspired Oxygen 40 Date/Time Source Procedure Growth Status 03/27/17 05:36 Blood Peripheral Aerobic Blood Culture Pending Received 03/27/17 05:36 Blood Peripheral Anaerobic Blood Culture Pending Received Result Diagram: 03/27/1752103/27/17521 Imaging Head: Normal. Neck: Supple, orally intubated. Lungs: Clear, no adventitious sounds. Good excursions on vent. Heart: NL S1S2m RRR, no m,r. No JVD. Abdomen: Binder in place. Postsurgical. Quiet. Extremities: Tepid, adequately perfused. Neuro: Moves 4 limbs spontaneously. Breathes over vent. ORTIZ Assessment and Plan Problem List: (1) Septic shock ICD Code: A41.9 - Sepsis, unspecified organism; R65.21 - Severe sepsis with septic shock Status: Acute (2) Acute massive necrosis of intestine ICD Code: K55.069 - Acute infarction of intestine, part and extent unspecified Status: Acute (3) Acute respiratory failure ICD Code: J96.00 - Acute respiratory failure, unspecified whether with hypoxia or hypercapnia Status: Acute (4) Metabolic acidosis ICD Code: E87.2 - Acidosis Status: Acute (5) SBO (small bowel obstruction) ICD Code: K56.609 - Unspecified intestinal obstruction, unspecified as to partial versus complete obstruction Status: Acute (6) Acute renal failure ICD Code: N17.9 - Acute kidney failure, unspecified Status: Acute Assessment and Plan Plan: 1. PRVC vent mode. 2. Fentanyl analgesia. 3. Propofol sedation. 4. Bicarb gtt. 5. NG to LIS. 6. Pepcid. 7. SCDs. 8. Plan 2nd look after 48 hours. Overall impression: Critically ill with septic shock and acute organ dysfunction , including renal and respiratory failure. Will require additional surgery over next 24-48 hours. Critical Care 45 mins Rudy Erazo MD Mar 27, 2017 15:35
[2017-03-27] MEDS ORDERED: SODIUM BICARBONATE 8.4% INJ 150 MEQ in WATER STERILE FOR INJ 850 ML IV SCH (16:00)
[2017-03-27] MEDS: fentaNYL DRIP 250 ML IV PRN (16:14)
[2017-03-27 17:47] LABS: BICARBONATE 24.3 MEQ/L (21.0-32.0); POTASSIUM 4.2 MEQ/L (3.5-5.1)
[2017-03-27 18:02] LABS: CALCIUM-PROTEIN CORRECTED 8.5 MG/DL (8.5-10.1)
[2017-03-27] MEDS: PIPERACIL-TAZO 3.375 GM PREMIX 50 ML IV SCH (18:12)
[2017-03-27] MEDS: CHLORHEXIDINE 0.12% (ORAL KIT) 15 ML CUP MT SCH (20:56)
[2017-03-27] MEDS: PROPOFOL 1000 MG/100 ML INJ 100 ML IV PRN (22:23)
[2017-03-28] VITALS (19 sets, daily range): BP systolic 113–123; BP diastolic 68–79; PULSE 88–108; RESP 16–17; TEMP 98.8–99.7; O2SAT 94–97
[2017-03-28] MEDS: PIPERACIL-TAZO 3.375 GM PREMIX 50 ML IV SCH ×5 (00:21→23:55)
[2017-03-28] MEDS: metroNIDAZOLE 500 MG INJ 100 ML IV SCH ×3 (04:28→20:28)
[2017-03-28 05:09] LABS: AUTOMATED NEUTROPHIL # 18.9 TH/MM3 (1.8-7.7); BASOPHIL # 0.1 TH/MM3 (0-0.2); BASOPHIL % 0.2 % (0.0-2.0); HEMATOCRIT 43.8 % (39.0-51.0); LYMPH % 4.7 % (9.0-44.0); MEAN CELL VOLUME 93.5 FL (80.0-100.0); MEAN CORPUSCULAR HEMOGLOBIN 31.5 PG (27.0-34.0); MEAN CORPUSCULAR HGB CONC 33.7 % (32.0-36.0); MONO % 7.1 % (0.0-8.0); PLATELET COUNT 135 TH/MM3 (150-450); RED BLOOD COUNT 4.69 MIL/MM3 (4.50-5.90); RED CELL DISTRIBUTION WIDTH 13.6 % (11.6-17.2); WHITE BLOOD COUNT 21.5 TH/MM3 (4.0-11.0)
[2017-03-28 05:12] LABS: BLOOD GAS BASE EXCESS 0.2 mmol/L (-2-2); BLOOD GAS HCO3 25 mmol/L (22-26); BLOOD GAS METHEMOGLOBIN 0.9 % (0-2); BLOOD GAS O2 HGB SATURATION 97 % (90-100); BLOOD GAS OXYGEN CONTENT 20.4 Vol % (12.0-20.0); BLOOD GAS PCO2 44 mmHg (38-42); BLOOD GAS PO2 141 mmHg (61-120); BLOOD GAS TOTAL HGB 14.8 G/DL (12.0-16.0); CRITICAL VALUE NO; FIO2 40 %; OXYGEN DEVICE VENTILATOR; TEMP CORR TO 98.6
[2017-03-28 05:13] LABS: DRAW SITE ALINE; STAT NO
[2017-03-28] MEDS: PROPOFOL 1000 MG/100 ML INJ 100 ML IV PRN ×4 (05:13→21:07)
[2017-03-28] MEDS: SODIUM CHLOR 0.9% 1000 ML INJ 1,000 ML IV SCH ×3 (05:13→17:52)
[2017-03-28 05:16] LABS: HEMO FLAGS AUTO DIFF
[2017-03-28 05:31] LABS: BICARBONATE 26.2 MEQ/L (21.0-32.0); POTASSIUM 4.4 MEQ/L (3.5-5.1)
[2017-03-28 05:36] LABS: INDIRECT BILIRUBIN 0.4 MG/DL (0.0-0.8); TOTAL BILIRUBIN ADULT 0.8 MG/DL (0.2-1.0)
[2017-03-28] MEDS: CHLORHEXIDINE 0.12% (ORAL KIT) 15 ML CUP MT SCH ×2 (07:17→20:28)
[2017-03-28 08:08] LABS: BANDS 19 % (0-6); NEUTROPHIL # MANUAL DIFF 18.7 TH/MM3 (1.8-7.7); POLYS (SEG NEUTROPHILS) 68 % (16-70); WBC DIFF SAMPLE 100
[2017-03-28 08:09] LABS: PLATELET ESTIMATE SMEAR LOW (NORMAL); PLATELET MORPHOLOGY NORMAL (NORMAL); SCAN/DIFF FINAL DIFF MANUAL
[2017-03-28] MEDS: SODIUM CHLORIDE 0.9% FLUSH 10 ML FLUSH IV FLUSH SCH ×2 (09:00→20:28)
--- NOTE | 2017-03-28 09:48 | HHI.CCPN ---
Subjective Remarks/Hospital Course 61 y/o man developed septic shock and required emergency small bowel resection for acute abdomen with intestinal infarction. Severe metabolic acidosis and NOELLE complicating care. Ventilator dependent now. 03/28: Warm, well perfused. Urine output acceptable. Renal function slowly improving but still considerably impaired. Objective Vital Signs Date Time Temp Pulse Resp B/P (MAP) Pulse Ox O2 Delivery O2 Flow Rate FiO2 03/28/17 09:06 95 30 03/28/17 08:00 105 03/28/17 08:00 99.7 16 120/79 (93) Arterial Line 03/28/17 07:00 Mechanical Ventilator Intake and Output 03/28/17 03/28/17 03/29/17 08:00 16:00 00:00 Intake Total 1998.5 ml 700 ml Output Total 840 ml Balance 1158.5 ml 700 ml Result Diagram: 03/28/17 0455 03/28/17 0455 Other Results Laboratory Tests Test 03/27/17 11:05 03/27/17 12:35 03/27/17 15:00 03/28/17 04:57 Blood Gas Puncture Site DRAWN IN OR ART LINE ART LINE PABLO Blood Gas Patient Temperature 98.6 98.6 98.6 98.6 Blood Gas HCO3 14 mmol/L (22-26) 20 mmol/L (22-26) 21 mmol/L (22-26) 25 mmol/L (22-26) Blood Gas Base Excess -12.4 mmol/L (-2-2) -7.1 mmol/L (-2-2) -4.6 mmol/L (-2-2) 0.2 mmol/L (-2-2) Blood Gas Oxygen Saturation 97 % (90-100) 97 % (90-100) 96 % (90-100) 97 % ( 90-100) Arterial Blood pH 7.23 (7.380-7.420) 7.19 (7.380-7.420) 7.31 (7.380-7.420) 7.37 (7.380-7.420) Arterial Blood Partial Pressure CO2 34 mmHg (38-42) 53 mmHg (38-42) 42 mmHg (38-42) 44 mmHg (38-42) Arterial Blood Partial Pressure O2 244 mmHg (61-120) 174 mmHg (61-120) 112 mmHg (61-120) 141 mmHg (61-120) Arterial Blood Oxygen Content 19.0 Vol % (12.0-20.0) 21.4 Vol % (12.0-20.0) 22.0 Vol % (12.0-20.0) 20.4 Vol % (12.0-20.0) Arterial Blood Carboxyhemoglobin 1.3 % (0-4) 1.1 % (0-4) 1.1 % (0-4) 1.0 % (0-4) Arterial Blood Methemoglobin 1.2 % (0-2) 1.2 % (0-2) 0.8 % (0-2) 0.9 % (0-2) Blood Gas Hemoglobin 13.6 G/DL (12.0-16.0) 15.5 G/DL (12.0-16.0) 16.2 G/DL (12.0-16.0) 14.8 G/DL (12.0-16.0) Oxygen Delivery Device VENTILATOR VENTILATOR VENTILATOR VENTILATOR Blood Gas Ventilator Setting [id number] SEE COMMENTS SEE COMMENT Blood Gas Inspired Oxygen % 50 % 40 % 40 % Imaging Head: Normal. Neck: Supple, orally intubated. Lungs: Clear, no adventitious sounds. Good excursions on vent. Heart: NL S1S2m RRR, no m,r. No JVD. Abdomen: Binder in place. Postsurgical. Quiet. Not distended. Extremities: Warm, well perfused. Neuro: Moves 4 limbs spontaneously. Breathes over vent. ORTIZ Opens eyes, tracks. A/P Problem List: (1) Septic shock ICD Code: A41.9 - Sepsis, unspecified organism; R65.21 - Severe sepsis with septic shock Status: Acute (2) Acute massive necrosis of intestine ICD Code: K55.069 - Acute infarction of intestine, part and extent unspecified Status: Acute (3) Acute respiratory failure ICD Code: J96.00 - Acute respiratory failure, unspecified whether with hypoxia or hypercapnia Status: Acute (4) Metabolic acidosis ICD Code: E87.2 - Acidosis Status: Acute (5) SBO (small bowel obstruction) ICD Code: K56.609 - Unspecified intestinal obstruction, unspecified as to partial versus complete obstruction Status: Acute (6) Acute renal failure ICD Code: N17.9 - Acute kidney failure, unspecified Status: Acute Assessment and Plan Plan: 1. PRVC vent mode. 2. Fentanyl analgesia. 3. Propofol sedation. 4. Bicarb gtt. 5. NG to LIS. 6. Pepcid. 7. SCDs. 8. Plan 2nd look after 48 hours. 9. D/C bicarb gtt and increase maintenance iv. Overall impression: Remains critically ill with septic shock and acute organ dysfunction, including renal and respiratory failure. Will require additional surgery over next 24 hours. Renal function remains impaired, but better. Requires mechanical ventilation. Critical Care 39 mins Rudy Erazo MD Mar 28, 2017 09:48
[2017-03-28] MEDS: PANTOPRAZOLE SODIUM 40 MG VIAL IV PUSH SCH (12:05)
[2017-03-28] MEDS: fentaNYL DRIP 250 ML IV PRN (12:06)
[2017-03-28 16:16] LABS: BICARBONATE 28.5 MEQ/L (21.0-32.0)
[2017-03-29] VITALS (18 sets, daily range): BP systolic 102–146; BP diastolic 58–85; PULSE 63–114; RESP 12–21; TEMP 97.3–99.4; O2SAT 92–100
--- NOTE | 2017-03-29 01:15 | HHI.PR ---
Subjective Subjective Notes late entry note from 03/28/17 intubated/sedated Objective Vitals/I&O Vital Signs Date Time Temp Pulse Resp B/P (MAP) Pulse Ox O2 Delivery O2 Flow Rate FiO2 03/29/17 00:00 97.5 87 16 102/60 (74) 95 03/29/17 00:00 30 03/28/17 19:00 Mechanical Ventilator Labs Laboratory Tests Test 03/28/17 04:55 03/28/17 04:57 03/28/17 15:30 White Blood Count 21.5 Red Blood Count 4.69 Hemoglobin 14.8 Hematocrit 43.8 Mean Corpuscular Volume 93.5 Mean Corpuscular Hemoglobin 31.5 Mean Corpuscular Hemoglobin Concent 33.7 Red Cell Distribution Width 13.6 Platelet Count 135 Mean Platelet Volume 11.3 Neutrophils (%) (Auto) 88.0 Lymphocytes (%) (Auto) 4.7 Monocytes (%) (Auto) 7.1 Eosinophils (%) (Auto) 0.0 Basophils (%) (Auto) 0.2 Neutrophils # (Auto) 18.9 Lymphocytes # (Auto) 1.0 Monocytes # (Auto) 1.5 Eosinophils # (Auto) 0.0 Basophils # (Auto) 0.1 CBC Comment AUTO DIFF Differential Total Cells Counted 100 Neutrophils % (Manual) 68 Band Neutrophils % 19 Lymphocytes % 6 Monocytes % 7 Neutrophils # (Manual) 18.7 Differential Comment FINAL DIFF MANUAL Platelet Estimate LOW Platelet Morphology Comment NORMAL Blood Urea Nitrogen 42 34 Creatinine 2.61 1.83 Random Glucose 114 106 Total Protein 4.9 Albumin 2.2 Calcium Level 7.9 8.0 Alkaline Phosphatase 34 Aspartate Amino Transf (AST/SGOT) 60 Alanine Aminotransferase (ALT/SGPT) 32 Total Bilirubin 0.8 Direct Bilirubin 0.4 Sodium Level 142 143 Potassium Level 4.4 4.0 Chloride Level 108 109 Carbon Dioxide Level 26.2 28.5 Anion Gap 8 6 Estimat Glomerular Filtration Rate 25 38 Indirect Bilirubin 0.4 Blood Gas Puncture Site PABLO Blood Gas Patient Temperature 98.6 Blood Gas HCO3 25 Blood Gas Base Excess 0.2 Blood Gas Oxygen Saturation 97 Arterial Blood pH 7.37 Arterial Blood Partial Pressure CO2 44 Arterial Blood Partial Pressure O2 141 Arterial Blood Oxygen Content 20.4 Arterial Blood Carboxyhemoglobin 1.0 Arterial Blood Methemoglobin 0.9 Blood Gas Hemoglobin 14.8 Oxygen Delivery Device VENTILATOR Blood Gas Ventilator Setting SEE COMMENT Blood Gas Inspired Oxygen 40 Date/Time Source Procedure Growth Status 03/27/17 05:36 Blood Peripheral Aerobic Blood Culture - Preliminary NO GROWTH IN 1 DAY Resulted 03/27/17 05:36 Blood Peripheral Anaerobic Blood Culture - Preliminary NO GROWTH IN 1 DAY Resulted Abdomen: Non-distended, Non-tender Wound Wound : Wound Location: Abdomen Appearance: Clean & Dry Dressing: VAC A/P Problem List: (1) Abdominal pain, acute ICD Codes: R10.9 - Unspecified abdominal pain Status: Acute (2) Elevated WBC count ICD Codes: D72.829 - Elevated white blood cell count, unspecified (3) SBO (small bowel obstruction) ICD Codes: K56.609 - Unspecified intestinal obstruction, unspecified as to partial versus complete obstruction Status: Acute (4) Abnormal CT of the abdomen ICD Codes: R93.5 - Abnormal findings on diagnostic imaging of other abdominal regions, including retroperitoneum Status: Acute Assessment and Plan 61yo male s/p ExLap for SBO and necrotic small bowel, doing well. OK for OR tomorrow for ExLap, possible abdominal closure (Dr. Britton) continue current supportive care, d/w family at bedside Problem Qualifiers (1) Elevated WBC count: Qualified Codes: D72.825 - Bandemia Grant Blake MD Mar 29, 2017 01:15
[2017-03-29] MEDS: PROPOFOL 1000 MG/100 ML INJ 100 ML IV PRN (02:01)
[2017-03-29] MEDS: SODIUM CHLOR 0.9% 1000 ML INJ 1,000 ML IV SCH ×3 (03:04→18:16)
[2017-03-29 04:07] LABS: BICARBONATE 29.6 MEQ/L (21.0-32.0)
[2017-03-29] MEDS: metroNIDAZOLE 500 MG INJ 100 ML IV SCH ×3 (04:33→20:56)
[2017-03-29] MEDS: PIPERACIL-TAZO 3.375 GM PREMIX 50 ML IV SCH ×3 (05:49→18:16)
--- NOTE | 2017-03-29 07:47 | EKG ---
Date Performed: 03/29/2017 Time Performed: 00:31:38 PTAGE: 61 years EKG: Sinus rhythm . Lateral T wave changes are nonspecific Borderline ECG Compared to prior electrocardiogram, rate has decreased PREVIOUS TRACING : 03/27/2017 10.24 DOCTOR: Flavio Boone Interpretating Date/Time 03/29/2017 07:46:16
[2017-03-29] MEDS: CHLORHEXIDINE 0.12% (ORAL KIT) 15 ML CUP MT SCH ×2 (08:00→20:00)
[2017-03-29] MEDS: SODIUM CHLORIDE 0.9% FLUSH 10 ML FLUSH IV FLUSH SCH ×2 (08:23→20:56)
[2017-03-29] MEDS: fentaNYL DRIP 250 ML IV PRN (10:14)
--- NOTE | 2017-03-29 10:22 | HHI.CCPN ---
Subjective Remarks/Hospital Course 61 y/o man developed septic shock and required emergency small bowel resection for acute abdomen with intestinal infarction. Severe metabolic acidosis and NOELLE complicating care. Ventilator dependent now. 03/28: Warm, well perfused. Urine output acceptable. Renal function slowly improving but still considerably impaired. 03/29: Urine output acceptable and he remains well perfused. Abdomen is open and he is suitably prepared for return to OR today. Objective Vital Signs Date Time Temp Pulse Resp B/P (MAP) Pulse Ox O2 Delivery O2 Flow Rate FiO2 03/29/17 10:00 63 03/29/17 09:42 100 30 03/29/17 08:00 99.2 16 106/58 (74) 03/29/17 07:00 Mechanical Ventilator Intake and Output 03/29/17 03/29/17 03/30/17 08:00 16:00 00:00 Intake Total 1828.4 ml 1250 ml Output Total 1050 ml 725 ml Balance 778.4 ml 525 ml Result Diagram: 03/28/17 0455 03/29/17 0245 Imaging Head: Normal. Neck: Supple, orally intubated. Lungs: Clear, no adventitious sounds. Good excursions on vent. Heart: NL S1S2m RRR, no m,r. No JVD. Abdomen: Binder in place. Postsurgical. Quiet. Not distended. Extremities: Warm, well perfused. Trace generalized edema. Neuro: Moves 4 limbs spontaneously. Breathes over vent. ORTIZ Opens eyes, tracks. A/P Problem List: (1) Septic shock ICD Code: A41.9 - Sepsis, unspecified organism; R65.21 - Severe sepsis with septic shock Status: Acute (2) Acute massive necrosis of intestine ICD Code: K55.069 - Acute infarction of intestine, part and extent unspecified Status: Acute (3) Acute respiratory failure ICD Code: J96.00 - Acute respiratory failure, unspecified whether with hypoxia or hypercapnia Status: Acute (4) Metabolic acidosis ICD Code: E87.2 - Acidosis Status: Acute (5) SBO (small bowel obstruction) ICD Code: K56.609 - Unspecified intestinal obstruction, unspecified as to partial versus complete obstruction Status: Acute (6) Acute renal failure ICD Code: N17.9 - Acute kidney failure, unspecified Status: Acute Assessment and Plan Plan: 1. PRVC vent mode. 2. Fentanyl analgesia. 3. Propofol sedation. 4. Bicarb gtt. 5. NG to LIS. 6. Pepcid. 7. SCDs. 8. Plan 2nd look after 48 hours. 9. D/C bicarb gtt and increase maintenance iv. 10. Return to OR for abdominal closure. Overall impression: Remains critically ill with resolving septic shock and acute organ dysfunction, including renal and respiratory failure. Will require additional surgery today. Renal function remains impaired, but improving. Requires mechanical ventilation, unable to wean yet.. Critical Care 34 mins Rudy Erazo MD Mar 29, 2017 10:22
[2017-03-29] MEDS ORDERED: ROCURONIUM INJ 50 MG/5 ML SYRINGE IV PUSH ONE (12:00)
[2017-03-29] MEDS ORDERED: PROPOFOL 200 MG/20 ML AMP IV ONE (12:00)
[2017-03-29] MEDS: PANTOPRAZOLE SODIUM 40 MG VIAL IV PUSH SCH (12:15)
--- NOTE | 2017-03-29 16:26 | MP ---
cc: ZACH ARMENDARIZ M.D., JOSEPH D. M.D. DATE OF SURGERY: 03/29/2017. PREOPERATIVE DIAGNOSIS: Open abdomen status post small bowel resection for ischemic bowel. POSTOPERATIVE DIAGNOSIS: Open abdomen status post small bowel resection for ischemic bowel. OPERATIVE PROCEDURE PERFORMED: 1. Exploratory laparotomy. 2. Small bowel anastomosis (stapled). 3. Incision and drainage of abdominal cavity. 4. Primary closure of the abdomen. SURGEON: Zach Armendariz MD. TOWER CLEANER: Marcelo. ANESTHESIA: General endotracheal anesthesia. COMPLICATIONS: None. INDICATIONS FOR THE PROCEDURE: Mr. Jauregui is a very pleasant 61-year-old gentleman who presented to the hospital on 03/26/2017 nausea, vomiting and abdominal pain. At that time, the patient was doing fairly well clinically. He had a CT scan that was concerning for possible bowel obstruction, although he had no previous abdominal surgery. The patient was admitted to the hospital and observed. Over the next 24 hours, the patient suffered a clinical decline. His white blood cell count went up markedly. His abdominal pain worsened significant and he was found to be oliguric. He was taken immediately to the operating room by Dr. Omari Reddy for exploratory laparotomy. At that time, the patient was in septic shock and Dr. Reddy found a large portion of jejunum that was necrotic from a band adhesion. Dr. Reddy resected the bowel but did not put it back together due the patient's sepsis and instability. He placed a temporary abdominal closure device (VAC) and planned to bring the patient back in 48 hours for re-exploration and possible anastomosis. This was all discussed the patient's and family, and they were agreeable. The patient returns today for re-exploration and possible anastomosis. INTRAOPERATIVE FINDINGS: Small bowel was completely viable and pink. It was seen to be peristalsing. There were no ischemic changes on either end. We measured out 300 cm of small bowel. Dr. Reddy had already put the two loops together with some silk sutures and we left this intact and went ahead and just did the anastomosis right where he had planned it. We did suck out about 500 cc of succus entericus via the nasogastric tube by milking the small bowel back in a retrograde fashion. The remainder of the abdomen was completely normal. The patient did have a mildly distended gallbladder but there was no inflammatory change noted around it. The remaining portions of the colon and stomach all looked viable and healthy. NG tube was positioned well along the greater curvature of the stomach right up to the pylorus. DESCRIPTION OF THE PROCEDURE IN DETAIL: The patient was identified, brought to the operating room and placed supine on the operating table. After adequate general endotracheal anesthesia was achieved, the abdominal dressing was removed. The VAC was removed. The skin and abdominal wall was prepped and draped in the standard surgical fashion using Betadine. Attention was directed to the intestine, which was carefully removed from the abdominal cavity. Some light filmy adhesions were taken down with blunt dissection. The entire small bowel was then run from the ligament of Treitz to where Dr. Reddy had sutured it to the distal segment. Both segments were completely viable. The distal small bowel seemed to be actively peristalsing. Proximal the bowel was mildly dilated but overall appeared healthy and pink. There was no ecchymosis and no ischemic changes. We measured out the remaining small bowel and got 20 15 cm segments using the surgical ruler for a total of 300 cm of small bowel. At this point, we went ahead and milked the small bowel back proximally via the NG tube and got out about 500 mL of succus entericus. We then rinsed the small bowel off with 2 liters of warm saline solution. This was agitated in the abdominal cavity in order to cleanse it. Once we did this, attention was directed to the anastomosis. Towels were placed around the small bowel and two anterior enterotomies were made. Succus entericus was suctioned out with the suction device. A JOS 55 stapler was then fired down the two antimesenteric borders of the small bowel. The anastomosis was inspected and there was no bleeding. The enterotomies were then closed using Allis clamps and a TA-55 stapling device. The staple line was then oversewn with 3-0 GI silks. The distal segment was also closed with a 3-0 GI silk. With this, the anastomosis was widely patent. The TA staple line was completely inverted and under no tension. The previous staple lines Dr. Reddy had performed were inspected, and there was no evidence of leakage of air and dee appeared to be intact. Next attention was turned to closure of the mesenteric defect. The mesenteric defect was closed with interrupted 3-0 GI silks in a [id number] fashion. Once we did this, the small bowel was returned to its anatomic position in the abdominal cavity. Again, it was rinsed out with another 2 liters of warm saline solution. The NG tube was then palpated within the stomach and confirmed to be along the greater curvature. It was advanced slightly until it abutted the pylorus. We re-inspected the anastomosis one more time. The anastomosis was widely patent. There was no evidence of a leak. All staple lines were inverted and under no tension. The small bowel was then returned to its anatomic position in the abdominal cavity. The rest the abdomen was gently palpated and inspected. The colon appeared viable and there were no abnormalities noted. The gallbladder was noted be distended but not tense and no inflammatory changes or ischemic changes were noted. The liver was smooth. The stomach was viable with the NG tube in place. At this point I felt confident with the abdominal cavity. We rinsed it out one more time with one liter of warm saline solution. All areas of concern had been addressed. Attention was now directed to closure. A piece of Seprafilm was placed on the small bowel anteriorly as the patient had no significant omentum to cover the bowel during the closure. The abdomen was then closed with a #1 looped PDS. Subcutaneous tissue was copiously irrigated and closed with a skin stapling device. The patient tolerated the procedure well, was awake and brought to recovery in stable condition. Estimated blood loss was minimal. MD DAY Montano/ITZEL /11:46 AM /4:08 PM BEAN
[2017-03-29 16:51] LABS: BICARBONATE 28.3 MEQ/L (21.0-32.0); POTASSIUM 3.9 MEQ/L (3.5-5.1)
[2017-03-29 17:20] LABS: CALCIUM-PROTEIN CORRECTED 8.6 MG/DL (8.5-10.1)
[2017-03-30] VITALS (14 sets, daily range): BP systolic 143–159; BP diastolic 82–89; PULSE 82–110; RESP 14–21; TEMP 98.9–99.8; O2SAT 93–95
[2017-03-30] MEDS: PIPERACIL-TAZO 3.375 GM PREMIX 50 ML IV SCH ×5 (00:06→23:18)
[2017-03-30] MEDS: SODIUM CHLOR 0.9% 1000 ML INJ 1,000 ML IV SCH (00:06)
[2017-03-30 03:43] LABS: AUTOMATED NEUTROPHIL # 18.4 TH/MM3 (1.8-7.7); BASOPHIL % 0.2 % (0.0-2.0); HEMATOCRIT 37.8 % (39.0-51.0); HEMO FLAGS DIFF FINAL; LYMPH % 2.7 % (9.0-44.0); LYMPHOCYTE # 0.5 TH/MM3 (1.0-4.8); MEAN CELL VOLUME 94.7 FL (80.0-100.0); MEAN CORPUSCULAR HEMOGLOBIN 31.5 PG (27.0-34.0); MEAN CORPUSCULAR HGB CONC 33.3 % (32.0-36.0); MONO % 3.7 % (0.0-8.0); NEUT % 93.4 % (16.0-70.0); PLATELET COUNT 142 TH/MM3 (150-450); RED BLOOD COUNT 3.99 MIL/MM3 (4.50-5.90); WHITE BLOOD COUNT 19.8 TH/MM3 (4.0-11.0)
[2017-03-30 04:04] LABS: BICARBONATE 28.3 MEQ/L (21.0-32.0)
[2017-03-30 04:08] LABS: POTASSIUM 4.3 MEQ/L (3.5-5.1)
[2017-03-30] MEDS: metroNIDAZOLE 500 MG INJ 100 ML IV SCH ×3 (04:09→20:28)
[2017-03-30] MEDS: LACTATED RINGER'S 1000 ML INJ 1,000 ML IV SCH ×2 (05:49→17:13)
--- NOTE | 2017-03-30 07:14 | HHI.CCPN ---
Subjective Remarks/Hospital Course 61 y/o man developed septic shock and required emergency small bowel resection for acute abdomen with intestinal infarction. Severe metabolic acidosis and NOELLE complicating care. Ventilator dependent now. 03/28: Warm, well perfused. Urine output acceptable. Renal function slowly improving but still considerably impaired. 03/29: Urine output acceptable and he remains well perfused. Abdomen is open and he is suitably prepared for return to OR today. 03/30: Renal function returning to normal. Extubated 03/29 and breathing comfortably last 24 hours. Objective Vital Signs Date Time Temp Pulse Resp B/P (MAP) Pulse Ox O2 Delivery O2 Flow Rate FiO2 03/30/17 06:00 101 03/30/17 04:00 99.7 17 151/84 (106) 95 03/29/17 20:00 Nasal Cannula 2.00 03/29/17 11:17 30 Intake and Output 03/30/17 03/30/17 03/31/17 08:00 16:00 00:00 Intake Total 1880 ml Output Total 630 ml Balance 1250 ml Result Diagram: 03/30/1731403/30/17314 Imaging Head: Normal. Neck: Supple, airway widely patent. Lungs: Clear, no adventitious sounds. Good excursions on vent. Heart: NL S1S2m RRR, no m,r. No JVD. Abdomen: Binder in place. Postsurgical. Quiet. Not distended. Extremities: Warm, well perfused. Trace generalized edema. Neuro: Moves 4 limbs spontaneously. O X 3, alert. A/P Problem List: (1) Septic shock ICD Code: A41.9 - Sepsis, unspecified organism; R65.21 - Severe sepsis with septic shock Status: Acute (2) Acute massive necrosis of intestine ICD Code: K55.069 - Acute infarction of intestine, part and extent unspecified Status: Acute (3) Acute respiratory failure ICD Code: J96.00 - Acute respiratory failure, unspecified whether with hypoxia or hypercapnia Status: Acute (4) Metabolic acidosis ICD Code: E87.2 - Acidosis Status: Acute (5) SBO (small bowel obstruction) ICD Code: K56.609 - Unspecified intestinal obstruction, unspecified as to partial versus complete obstruction Status: Acute (6) Acute renal failure ICD Code: N17.9 - Acute kidney failure, unspecified Status: Acute Assessment and Plan Plan: 1. PRVC vent mode -> extubated 10.15. 2. d/c Fentanyl analgesia. 3. d/c Propofol sedation. 4. d/c Bicarb gtt. 5. NG to LIS. 6. Pepcid. 7. SCDs. 8. Plan 2nd look after 48 hours -> done, reanastomosis small bowel. 9. Mobilize. Overall impression: Stable hemodynamic and respiratory status. Rudy Erazo MD Mar 30, 2017 07:14
[2017-03-30] MEDS: CHLORHEXIDINE 0.12% (ORAL KIT) 15 ML CUP MT SCH ×2 (07:35→20:00)
[2017-03-30 07:49] LABS: MAGNESIUM 2.3 MG/DL (1.5-2.5)
[2017-03-30] MEDS: SODIUM CHLORIDE 0.9% FLUSH 10 ML FLUSH IV FLUSH SCH ×2 (08:04→21:00)
--- NOTE | 2017-03-30 08:42 | HHI.PR ---
Subjective Subjective Notes feeling better, some abd pain, slightly confused overnight. wants some water Objective Vitals/I&O Vital Signs Date Time Temp Pulse Resp B/P (MAP) Pulse Ox O2 Delivery O2 Flow Rate FiO2 03/30/17 07:28 95 Nasal Cannula 2.00 03/30/17 06:00 101 03/30/17 04:00 99.7 17 151/84 (106) 03/29/17 11:17 30 Labs Laboratory Tests Test 03/29/17 15:45 03/30/17 03:15 Blood Urea Nitrogen 21 17 Creatinine 1.10 0.98 Random Glucose 98 88 Total Protein 4.9 Calcium Level 7.4 7.6 Sodium Level 146 147 Potassium Level 3.9 4.3 Chloride Level 113 112 Carbon Dioxide Level 28.3 28.3 Anion Gap 5 7 Estimat Glomerular Filtration Rate 68 78 Protein Corrected Calcium 8.6 White Blood Count 19.8 Red Blood Count 3.99 Hemoglobin 12.6 Hematocrit 37.8 Mean Corpuscular Volume 94.7 Mean Corpuscular Hemoglobin 31.5 Mean Corpuscular Hemoglobin Concent 33.3 Red Cell Distribution Width 14.0 Platelet Count 142 Mean Platelet Volume 10.4 Neutrophils (%) (Auto) 93.4 Lymphocytes (%) (Auto) 2.7 Monocytes (%) (Auto) 3.7 Eosinophils (%) (Auto) 0.0 Basophils (%) (Auto) 0.2 Neutrophils # (Auto) 18.4 Lymphocytes # (Auto) 0.5 Monocytes # (Auto) 0.7 Eosinophils # (Auto) 0.0 Basophils # (Auto) 0.0 CBC Comment DIFF FINAL Differential Comment Phosphorus Level 1.8 Magnesium Level 2.3 Date/Time Source Procedure Growth Status 03/27/17 05:36 Blood Peripheral Aerobic Blood Culture - Preliminary NO GROWTH IN 2 DAYS Resulted 03/27/17 05:36 Blood Peripheral Anaerobic Blood Culture - Preliminary NO GROWTH IN 2 DAYS Resulted Abdomen: Non-distended, Post-op tenderness, BS normal Wound Wound : Wound Location: Abdomen Appearance: Clean & Dry Dressing: VAC A/P Problem List: (1) Abdominal pain, acute ICD Codes: R10.9 - Unspecified abdominal pain Status: Acute (2) Elevated WBC count ICD Codes: D72.829 - Elevated white blood cell count, unspecified (3) SBO (small bowel obstruction) ICD Codes: K56.609 - Unspecified intestinal obstruction, unspecified as to partial versus complete obstruction Status: Acute (4) Abnormal CT of the abdomen ICD Codes: R93.5 - Abnormal findings on diagnostic imaging of other abdominal regions, including retroperitoneum Status: Acute Assessment and Plan POD 2 small bowel anastomosis doing well ok for ice chips and popcicles oob will transfer to floor tomorrow if he does well today. Problem Qualifiers (1) Elevated WBC count: Qualified Codes: D72.825 - Bandemia Manuel Britton MD Mar 30, 2017 08:42
[2017-03-30] MEDS ORDERED: NALOXONE HCL 0.4 MG/ML AMP IV PUSH PRN (08:45)
[2017-03-30] MEDS: MORPHINE SULFATE 30 MG/30 ML PCA IV SCH (09:47)
[2017-03-30] MEDS: ONDANSETRON HCL 4 MG/2 ML VIAL IVP PRN (11:44)
[2017-03-30] MEDS: PANTOPRAZOLE SODIUM 40 MG VIAL IV PUSH SCH (11:44)
[2017-03-30] MEDS: PCA - TOTAL MG MORPHINE DELIVERED PER SHIFT SCH ×2 (14:00→22:00)
[2017-03-31] VITALS (12 sets, daily range): BP systolic 96–143; BP diastolic 59–76; PULSE 68–112; RESP 14–22; TEMP 98.1–99.5; O2SAT 94–98
[2017-03-31] MEDS: metroNIDAZOLE 500 MG INJ 100 ML IV SCH ×3 (04:16→20:23)
[2017-03-31 04:51] LABS: BICARBONATE 28.8 MEQ/L (21.0-32.0); POTASSIUM 3.7 MEQ/L (3.5-5.1)
[2017-03-31] MEDS: PIPERACIL-TAZO 3.375 GM PREMIX 50 ML IV SCH ×4 (05:10→23:50)
[2017-03-31] MEDS: PCA - TOTAL MG MORPHINE DELIVERED PER SHIFT SCH ×3 (06:00→20:24)
[2017-03-31] MEDS: CHLORHEXIDINE 0.12% (ORAL KIT) 15 ML CUP MT SCH ×2 (07:23→20:00)
[2017-03-31] MEDS: LACTATED RINGER'S 1000 ML INJ 1,000 ML IV SCH ×2 (07:23→20:23)
[2017-03-31] MEDS: MORPHINE SULFATE 30 MG/30 ML PCA IV SCH (08:21)
--- NOTE | 2017-03-31 08:44 | HHI.PR ---
Subjective Subjective Notes feeling better, some N/V yesterday. no BM/flatus yet. Objective Vitals/I&O Vital Signs Date Time Temp Pulse Resp B/P (MAP) Pulse Ox O2 Delivery O2 Flow Rate FiO2 03/31/17 08:21 22 03/31/17 08:00 84 03/31/17 07:46 94 Nasal Cannula 2.00 03/31/17 04:00 99.2 138/75 (96) 03/29/17 11:17 30 Labs Laboratory Tests Test 03/31/17 04:27 Blood Urea Nitrogen 18 Creatinine 0.79 Random Glucose 106 Calcium Level 8.2 Sodium Level 149 Potassium Level 3.7 Chloride Level 114 Carbon Dioxide Level 28.8 Anion Gap 6 Estimat Glomerular Filtration Rate 100 Date/Time Source Procedure Growth Status 03/27/17 05:36 Blood Peripheral Aerobic Blood Culture - Preliminary NO GROWTH IN 3 DAYS Resulted 03/27/17 05:36 Blood Peripheral Anaerobic Blood Culture - Preliminary NO GROWTH IN 3 DAYS Resulted Abdomen: Post-op tenderness Wound Wound : Wound Location: Abdomen Dressing: VAC A/P Problem List: (1) Abdominal pain, acute ICD Codes: R10.9 - Unspecified abdominal pain Status: Acute (2) Elevated WBC count ICD Codes: D72.829 - Elevated white blood cell count, unspecified (3) SBO (small bowel obstruction) ICD Codes: K56.609 - Unspecified intestinal obstruction, unspecified as to partial versus complete obstruction Status: Acute (4) Abnormal CT of the abdomen ICD Codes: R93.5 - Abnormal findings on diagnostic imaging of other abdominal regions, including retroperitoneum Status: Acute Assessment and Plan POD 3 small bowel anastomosis doing well ok for ice chips and popcicles oob will transfer to floor today PT Problem Qualifiers (1) Elevated WBC count: Qualified Codes: D72.825 - Bandemia Manuel Britton MD Mar 31, 2017 08:44
[2017-03-31] MEDS: SODIUM CHLORIDE 0.9% FLUSH 10 ML FLUSH IV FLUSH SCH ×2 (08:46→20:24)
[2017-03-31] MEDS: PANTOPRAZOLE SODIUM 40 MG VIAL IV PUSH SCH (12:05)
--- NOTE | 2017-03-31 17:55 | HHI.CCPN ---
Subjective Remarks/Hospital Course 61 y/o man developed septic shock and required emergency small bowel resection for acute abdomen with intestinal infarction. Severe metabolic acidosis and NOELLE complicating care. Ventilator dependent now. 03/28: Warm, well perfused. Urine output acceptable. Renal function slowly improving but still considerably impaired. 03/29: Urine output acceptable and he remains well perfused. Abdomen is open and he is suitably prepared for return to OR today. 03/30: Renal function returning to normal. Extubated 03/29 and breathing comfortably last 24 hours. 03/31: Seen early a.m., abdomen with some bowel sounds. Breathing comfortably, family sleeping. Objective Vital Signs Date Time Temp Pulse Resp B/P (MAP) Pulse Ox O2 Delivery O2 Flow Rate FiO2 03/31/17 17:39 98.8 71 18 138/76 (96) 97 03/31/17 07:46 Nasal Cannula 2.00 03/29/17 11:17 30 Intake and Output 03/31/17 03/31/17 04/01/17 08:00 16:00 00:00 Intake Total 150 ml Output Total 850 ml Balance -700 ml Result Diagram: 03/30/17 0315 03/31/17 0427 Imaging Head: Normal. Neck: Supple, airway widely patent. No obstruction. Lungs: Clear, no adventitious sounds. Comfortable. Heart: NL S1S2m RRR, no m,r. No JVD. Abdomen: Nondistended, BS few. No guarding. Extremities: Warm, well perfused. Trace generalized edema. Neuro: Moves 4 limbs spontaneously. O X 3, alert. Sleeping. A/P Problem List: (1) Septic shock ICD Code: A41.9 - Sepsis, unspecified organism; R65.21 - Severe sepsis with septic shock Status: Acute (2) Acute massive necrosis of intestine ICD Code: K55.069 - Acute infarction of intestine, part and extent unspecified Status: Acute (3) Acute respiratory failure ICD Code: J96.00 - Acute respiratory failure, unspecified whether with hypoxia or hypercapnia Status: Acute (4) Metabolic acidosis ICD Code: E87.2 - Acidosis Status: Acute (5) SBO (small bowel obstruction) ICD Code: K56.609 - Unspecified intestinal obstruction, unspecified as to partial versus complete obstruction Status: Acute (6) Acute renal failure ICD Code: N17.9 - Acute kidney failure, unspecified Status: Acute Assessment and Plan Plan: 1. PRVC vent mode -> extubated 03/29. 2. d/c Fentanyl analgesia. 3. d/c Propofol sedation. 4. d/c Bicarb gtt. 5. NG to LIS. 6. Pepcid. 7. SCDs. 8. Plan 2nd look after 48 hours -> done, reanastomosis small bowel. 9. Mobilize. 10. NG/diet per GS Overall impression: Stable hemodynamic and respiratory status. Warm, well perfused. Resolving renal injury. Looks good. Will sign off. Rudy Erazo MD Mar 31, 2017 17:55
[2017-04-01] VITALS (7 sets, daily range): BP systolic 128–150; BP diastolic 77–85; PULSE 62–70; RESP 16–20; TEMP 96.7–98.9; O2SAT 94–98
[2017-04-01] MEDS: metroNIDAZOLE 500 MG INJ 100 ML IV SCH (04:23)
[2017-04-01] MEDS: PCA - TOTAL MG MORPHINE DELIVERED PER SHIFT SCH ×3 (06:00→20:09)
[2017-04-01] MEDS: PIPERACIL-TAZO 3.375 GM PREMIX 50 ML IV SCH (06:08)
[2017-04-01] MEDS: CHLORHEXIDINE 0.12% (ORAL KIT) 15 ML CUP MT SCH ×2 (08:00→20:00)
[2017-04-01] MEDS ORDERED: ACETAMINOPHEN/HYDROcodone 325 MG/5 MG TAB PO PRN ×2 (08:45)
[2017-04-01] MEDS ORDERED: MORPHINE SULFATE 4 MG/ML INJ IV PUSH PRN (08:45)
--- NOTE | 2017-04-01 10:32 | HHI.PR ---
Subjective Subjective Notes Resting in bed Was OOB to chair for 3 hours last night Objective Vitals/I&O Vital Signs Date Time Temp Pulse Resp B/P (MAP) Pulse Ox O2 Delivery O2 Flow Rate FiO2 04/01/17 08:00 98.6 67 16 128/82 (97) 98 03/31/17 23:50 Nasal Cannula 2.00 03/29/17 11:17 30 Labs Date/Time Source Procedure Growth Status 03/27/17 05:36 Blood Peripheral Aerobic Blood Culture - Preliminary NO GROWTH IN 4 DAYS Resulted 03/27/17 05:36 Blood Peripheral Anaerobic Blood Culture - Preliminary NO GROWTH IN 4 DAYS Resulted Cardiovascular: Regular Lungs: Clear Abdomen: Other (JEAN in place with scant amount of drainage; good seal; +BS; soft; minimally tender with palpation ) Extremities: No edema A/P Problem List: (1) Abdominal pain, acute ICD Codes: R10.9 - Unspecified abdominal pain Status: Acute (2) Elevated WBC count ICD Codes: D72.829 - Elevated white blood cell count, unspecified (3) SBO (small bowel obstruction) ICD Codes: K56.609 - Unspecified intestinal obstruction, unspecified as to partial versus complete obstruction Status: Acute (4) Abnormal CT of the abdomen ICD Codes: R93.5 - Abnormal findings on diagnostic imaging of other abdominal regions, including retroperitoneum Status: Acute Assessment and Plan 61 year old male with abdominal pain; POD4 small bowel anastomosis -Continue ice and popsicles -DC CHECK SERVICES CLERK; add [place] and breakthrough Morphine IV -IVF -DC antibiotics -Labs today -Clamp NGT; check residual at 1430 Problem Qualifiers (1) Elevated WBC count: Qualified Codes: D72.825 - Bandemia Bridget Mahajan Apr 01, 2017 10:32
[2017-04-01] MEDS: PANTOPRAZOLE SODIUM 40 MG VIAL IV PUSH SCH (13:11)
[2017-04-01] MEDS: SODIUM CHLORIDE 0.9% FLUSH 10 ML FLUSH IV FLUSH SCH ×2 (13:17→22:48)
[2017-04-01 15:45] LABS: AUTOMATED NEUTROPHIL # 12.5 TH/MM3 (1.8-7.7); BASOPHIL % 0.1 % (0.0-2.0); EOSINOPHIL # 0.2 TH/MM3 (0-0.4); EOSINOPHIL % 1.1 % (0.0-4.0); HEMO FLAGS DIFF FINAL; LYMPH % 6.7 % (9.0-44.0); MEAN CELL VOLUME 94.2 FL (80.0-100.0); MEAN CORPUSCULAR HEMOGLOBIN 31.8 PG (27.0-34.0); MEAN CORPUSCULAR HGB CONC 33.8 % (32.0-36.0); MONO % 6.4 % (0.0-8.0); NEUT % 85.7 % (16.0-70.0); PLATELET COUNT 161 TH/MM3 (150-450); RED BLOOD COUNT 4.04 MIL/MM3 (4.50-5.90); RED CELL DISTRIBUTION WIDTH 13.7 % (11.6-17.2); WHITE BLOOD COUNT 14.6 TH/MM3 (4.0-11.0)
[2017-04-01 16:12] LABS: BICARBONATE 28.3 MEQ/L (21.0-32.0); POTASSIUM 3.4 MEQ/L (3.5-5.1)
[2017-04-01] MEDS: LACTATED RINGER'S 1000 ML INJ 1,000 ML IV SCH ×2 (16:37→23:23)
--- NOTE | 2017-04-01 16:39 | HHI.PR ---
Subjective Remarks Very pleasant, in the chair. Family at bedside. Salas s no pain at this time. No n/v/d/c. Tolerates popsicles and ice chips. No n/v /d/c. Has gas. No fever or chills. No cough Denies chest pain or sob. Objective Vitals Vital Signs Date Time Temp Pulse Resp B/P (MAP) Pulse Ox O2 Delivery O2 Flow Rate FiO2 04/01/17 13:10 16 04/01/17 12:00 96.7 69 16 147/85 (105) 96 04/01/17 08:00 98.6 67 16 128/82 (97) 98 04/01/17 07:40 98 Nasal Cannula 2.00 04/01/17 06:00 18 04/01/17 04:00 98.9 62 20 133/77 (95) 95 04/01/17 00:00 98.2 70 20 140/84 (102) 98 03/31/17 23:50 Nasal Cannula 2.00 03/31/17 20:00 98.1 71 20 143/71 (95) 97 03/31/17 17:39 98.8 71 18 138/76 (96) 97 I/O 03/31/17 03/31/17 03/31/17 04/01/17 04/01/17 04/01/17 07:00 15:00 23:00 07:00 15:00 23:00 Intake Total 150 ml 50 ml 1670 ml Output Total 850 ml 2450 ml Balance -700 ml 50 ml -780 ml Intake Oral 720 ml IV Total 150 ml 50 ml 950 ml Output Urine Total 750 ml 950 ml Drainage Total 100 ml 1500 ml Result Diagram: 04/01/17 1450 04/01/17 1450 Imaging Last Impressions Chest X-Ray 03/27/17 0000 Signed Impressions: Service Date/Time: Monday, March 27, 2017 13:28 - CONCLUSION: 1. Right- sided central line in good position without pneumothorax. 2. Left basilar atelectasis. Alf Floyd Jr., MD Abdomen X-Ray 03/27/17 0000 Signed Impressions: Service Date/Time: Monday, March 27, 2017 07:45 - CONCLUSION: Unchanged dilatation of the small bowel in a pattern suggesting small bowel obstruction. Alf Floyd Jr., MD Objective Remarks GENERAL: Very pleasant 61 yo male, well nourished well developed patient, appears in nad. CARDIOVASCULAR: Regular rate and rhythm. RESPIRATORY: No accessory muscle use. Clear to auscultation. Breath sounds equal bilaterally. GASTROINTESTINAL: Abdomen soft, non-tender, nondistended. JEAN in place with minimal amount of drainage; good seal; +BS; soft; minimally tender with palpation. MUSCULOSKELETAL: Extremities without clubbing, cyanosis, or edema. No obvious deformities. NEUROLOGICAL: Awake and alert. No obvious cranial nerve deficits. Motor grossly within normal limits. Five out of 5 muscle strength in the arms and legs. Normal speech. PSYCHIATRIC: Appropriate mood and affect; insight and judgment normal. A/P Assessment and Plan 61 year old male with abdominal pain; s/p small bowel anastomosis Septic shock Acute massive necrosis of intestine Acute respiratory failure Metabolic acidosis SBO (small bowel obstruction) Acute renal failure Respiratory failure was intubated and extubated 03/29. -s/p small bowel anastomosis -Continue ice and popsicles , advance diet per surgeon -pain management with [place] and breakthrough Morphine IV -IVF -DC antibiotics -Clamp NGT; check residual at 1430 per gen surg Gen surg ff DVT ppx SCD Discussed with the patient, nurse, family at bedside Maribeth Singleton MD Apr 01, 2017 16:39
[2017-04-02 00:41] VITALS: BP 146/76; PULSE 75; RESP 18; TEMP 98.2; O2SAT 97
[2017-04-02] MEDS: PCA - TOTAL MG MORPHINE DELIVERED PER SHIFT SCH ×3 (04:32→20:08)
[2017-04-02 08:00] VITALS: BP 139/79; PULSE 70; RESP 17; TEMP 98.6; O2SAT 96
[2017-04-02] MEDS: CHLORHEXIDINE 0.12% (ORAL KIT) 15 ML CUP MT SCH ×2 (08:00→20:00)
--- NOTE | 2017-04-02 08:31 | HHI.PR ---
Subjective Remarks With LE edema up to the scrotum now. No fever or chills. No n/v/d/c. Denies chest pain or sob. Denies n/v/d/c. Pain is fairly controlled by meds. No fever or chills. No cough. K noted low replaced. Objective Vitals Vital Signs Date Time Temp Pulse Resp B/P (MAP) Pulse Ox O2 Delivery O2 Flow Rate FiO2 04/02/17 00:41 98.2 75 18 146/76 (99) 97 04/01/17 20:00 98.1 66 18 150/82 (104) 94 04/01/17 18:19 94 21 04/01/17 16:00 98.0 69 17 145/82 (103) 94 04/01/17 13:10 16 04/01/17 12:00 96.7 69 16 147/85 (105) 96 I/O 04/01/17 04/01/17 04/01/17 04/02/17 04/02/17 04/02/17 07:00 15:00 23:00 07:00 15:00 23:00 Intake Total 1670 ml 764 ml 813 ml Output Total 2450 ml Balance -780 ml 764 ml 813 ml Intake Oral 720 ml 330 ml IV Total 950 ml 434 ml 813 ml Output Urine Total 950 ml Drainage Total 1500 ml # Voids 3 2 # Bowel Movements 2 1 Result Diagram: 04/01/17 1450 04/01/17 1450 Imaging Last Impressions Chest X-Ray 03/27/17 0000 Signed Impressions: Service Date/Time: Monday, March 27, 2017 13:28 - CONCLUSION: 1. Right- sided central line in good position without pneumothorax. 2. Left basilar atelectasis. Alf Floyd Jr., MD Abdomen X-Ray 03/27/17 0000 Signed Impressions: Service Date/Time: Monday, March 27, 2017 07:45 - CONCLUSION: Unchanged dilatation of the small bowel in a pattern suggesting small bowel obstruction. Alf Floyd Jr., MD Objective Remarks GENERAL: Very pleasant 61 yo male, well nourished well developed patient, appears in nad. CARDIOVASCULAR: Regular rate and rhythm. RESPIRATORY: No accessory muscle use. Clear to auscultation. Breath sounds equal bilaterally. GASTROINTESTINAL: Abdomen soft, non-tender, nondistended. Abd binder in place. MUSCULOSKELETAL: Extremities without clubbing, cyanosis, or edema. No obvious deformities. NEUROLOGICAL: Awake and alert. No obvious cranial nerve deficits. Motor grossly within normal limits. Five out of 5 muscle strength in the arms and legs. Normal speech. PSYCHIATRIC: Appropriate mood and affect; insight and judgment normal. A/P Assessment and Plan 61 year old male with abdominal pain; s/p small bowel anastomosis Septic shock Acute massive necrosis of intestine Acute respiratory failure Metabolic acidosis SBO (small bowel obstruction) Acute renal failure Respiratory failure was intubated and extubated 03/29. Hypokalemia -s/p small bowel anastomosis by Dr Britton -Advance diet to full liquid diet -pain management with [place] and breakthrough Morphine IV, pain is controlled and patient is barely using pain meds -stop IVF as noted with LE edema. Give lasix 20 mg if need .patient refusing lasix at this time. he is ambulating and has a good urine OP. -DC antibiotics -NGT tube was removed, diet advanced per surgeon -Replace potassium, monitor and replace as need. Gen surg ff DVT ppx SCD Discussed with the patient, nurse, family at bedside, Dr Britton gen surg DC plan: Poss DC tomorrow if tolerates diet. Maribeth Singleton MD Apr 02, 2017 08:31
[2017-04-02] MEDS: SODIUM CHLORIDE 0.9% FLUSH 10 ML FLUSH IV FLUSH SCH ×2 (09:00→20:12)
[2017-04-02 10:58] LABS: AUTOMATED NEUTROPHIL # 10.1 TH/MM3 (1.8-7.7); BASOPHIL % 0.1 % (0.0-2.0); EOSINOPHIL # 0.2 TH/MM3 (0-0.4); EOSINOPHIL % 1.6 % (0.0-4.0); HEMATOCRIT 36.6 % (39.0-51.0); HEMO FLAGS DIFF FINAL; LYMPH % 10.6 % (9.0-44.0); LYMPHOCYTE # 1.3 TH/MM3 (1.0-4.8); MEAN CORPUSCULAR HEMOGLOBIN 31.6 PG (27.0-34.0); MONO % 6.5 % (0.0-8.0); NEUT % 81.2 % (16.0-70.0); PLATELET COUNT 187 TH/MM3 (150-450); RED BLOOD COUNT 3.94 MIL/MM3 (4.50-5.90); RED CELL DISTRIBUTION WIDTH 13.1 % (11.6-17.2); WHITE BLOOD COUNT 12.5 TH/MM3 (4.0-11.0)
[2017-04-02] MEDS ORDERED: FUROSEMIDE 20 MG TAB PO PRN (11:00)
[2017-04-02] MEDS ORDERED: POTASSIUM CHLORIDE 10 MEQ CONTROLLED RELEASE TAB PO ONE ×2 (11:15→12:00)
[2017-04-02 11:33] LABS: BICARBONATE 27.5 MEQ/L (21.0-32.0); MAGNESIUM 2.1 MG/DL (1.5-2.5)
[2017-04-02 11:52] LABS: POTASSIUM 2.9 MEQ/L (3.5-5.1)
[2017-04-02 12:00] VITALS: BP 150/86; PULSE 77; RESP 17; TEMP 98.2; O2SAT 97
[2017-04-02] MEDS: PANTOPRAZOLE SODIUM 40 MG VIAL IV PUSH SCH (12:00)
[2017-04-02] MEDS ORDERED: POTASSIUM CHLOR 20 MEQ PREMIX 100 ML IV SCH (12:00)
--- NOTE | 2017-04-02 12:01 | HHI.PR ---
Subjective Subjective Notes doing well, tolerated NG out, wants something to drink Objective Vitals/I&O Vital Signs Date Time Temp Pulse Resp B/P (MAP) Pulse Ox O2 Delivery O2 Flow Rate FiO2 04/02/17 08:00 98.6 70 17 139/79 (99) 96 04/01/17 18:19 21 04/01/17 07:40 Nasal Cannula 2.00 Labs Laboratory Tests Test 04/01/17 14:50 04/02/17 10:12 White Blood Count 14.6 12.5 Red Blood Count 4.04 3.94 Hemoglobin 12.8 12.4 Hematocrit 38.0 36.6 Mean Corpuscular Volume 94.2 93.0 Mean Corpuscular Hemoglobin 31.8 31.6 Mean Corpuscular Hemoglobin Concent 33.8 34.0 Red Cell Distribution Width 13.7 13.1 Platelet Count 161 187 Mean Platelet Volume 10.4 10.4 Neutrophils (%) (Auto) 85.7 81.2 Lymphocytes (%) (Auto) 6.7 10.6 Monocytes (%) (Auto) 6.4 6.5 Eosinophils (%) (Auto) 1.1 1.6 Basophils (%) (Auto) 0.1 0.1 Neutrophils # (Auto) 12.5 10.1 Lymphocytes # (Auto) 1.0 1.3 Monocytes # (Auto) 0.9 0.8 Eosinophils # (Auto) 0.2 0.2 Basophils # (Auto) 0.0 0.0 CBC Comment DIFF FINAL DIFF FINAL Differential Comment Blood Urea Nitrogen 20 16 Creatinine 0.79 0.68 Random Glucose 85 89 Calcium Level 8.5 8.0 Sodium Level 142 140 Potassium Level 3.4 2.9 Chloride Level 106 104 Carbon Dioxide Level 28.3 27.5 Anion Gap 8 9 Estimat Glomerular Filtration Rate 100 119 Magnesium Level 2.1 Date/Time Source Procedure Growth Status 03/27/17 05:36 Blood Peripheral Aerobic Blood Culture - Final NO GROWTH IN 5 DAYS Complete 03/27/17 05:36 Blood Peripheral Anaerobic Blood Culture - Final NO GROWTH IN 5 DAYS Complete Abdomen: Non-distended, Non-tender, Post-op tenderness, BS normal Wound Wound : Wound Location: Abdomen Appearance: Clean & Dry Dressing: Dry A/P Problem List: (1) Abdominal pain, acute ICD Codes: R10.9 - Unspecified abdominal pain Status: Acute (2) Elevated WBC count ICD Codes: D72.829 - Elevated white blood cell count, unspecified (3) SBO (small bowel obstruction) ICD Codes: K56.609 - Unspecified intestinal obstruction, unspecified as to partial versus complete obstruction Status: Acute (4) Abnormal CT of the abdomen ICD Codes: R93.5 - Abnormal findings on diagnostic imaging of other abdominal regions, including retroperitoneum Status: Acute Assessment and Plan POD 4 small bowel anastomosis doing well full liquids oob K Problem Qualifiers (1) Elevated WBC count: Qualified Codes: D72.825 - Bandemia Manuel Britton MD Apr 02, 2017 12:01
[2017-04-02] MEDS: LACTOBACILLUS ACIDOPHILUS TAB PO SCH ×2 (12:03→20:10)
[2017-04-02 16:00] VITALS: BP 151/89; PULSE 77; RESP 16; TEMP 98.5; O2SAT 96
[2017-04-02] MEDS ORDERED: LACT PO (17:28)
[2017-04-02] MEDS ORDERED: NORC5TAB PO (17:28)
--- NOTE | 2017-04-02 17:28 | HHI.DS ---
Discharge Summary Admission Date Mar 26, 2017 at 03:50 Discharge Date: Apr 03, 2017 Admitting Diagnosis Septic shock Acute massive necrosis of intestine Acute respiratory failure Metabolic acidosis SBO (small bowel obstruction) Acute renal failure Respiratory failure was intubated and extubated 03/29. Hypokalemia (1) Abnormal CT of the abdomen ICD Code: R93.5 - Abnormal findings on diagnostic imaging of other abdominal regions, including retroperitoneum Status: Acute (2) Acute respiratory failure ICD Code: J96.00 - Acute respiratory failure, unspecified whether with hypoxia or hypercapnia Status: Acute (3) Septic shock ICD Code: A41.9 - Sepsis, unspecified organism; R65.21 - Severe sepsis with septic shock Status: Acute (4) Acute renal failure ICD Code: N17.9 - Acute kidney failure, unspecified Status: Acute (5) SBO (small bowel obstruction) ICD Code: K56.609 - Unspecified intestinal obstruction, unspecified as to partial versus complete obstruction Status: Acute (6) Metabolic acidosis ICD Code: E87.2 - Acidosis Status: Acute (7) Acute massive necrosis of intestine ICD Code: K55.069 - Acute infarction of intestine, part and extent unspecified Status: Acute (8) Elevated WBC count ICD Code: D72.829 - Elevated white blood cell count, unspecified (9) Abdominal pain, acute ICD Code: R10.9 - Unspecified abdominal pain Status: Acute (10) Ischemic necrosis of small bowel ICD Code: K55.029 - Acute infarction of small intestine, extent unspecified Procedures -s/p small bowel anastomosis by Dr Britton Brief History - From Admission This is a pleasant 61 y/o male initially seen at [facility], due to complains of onset of diffuse abdominal pain about 6 PM tonight. He has had significant nausea and vomiting and some diarrhea with this. He rates pain 7-8 out of 10. He denies any prior surgical history. He does smoke cigarettes and drinks alcohol occasionally. He has never had an episode like this before. Seen in his bedroom, stable in the presence of his Mrs. Kat Camilo. CBC/BMP: 04/02/17 1012 04/02/17 1012 Significant Findings Laboratory Tests Test 03/31/17 04:27 04/01/17 14:50 04/02/17 10:12 Calcium Level 8.2 MG/DL (8.5-10.1) 8.0 MG/DL (8.5-10.1) Sodium Level 149 MEQ/L (136-145) Chloride Level 114 MEQ/L (98-107) White Blood Count 14.6 TH/MM3 (4.0-11.0) 12.5 TH/MM3 (4.0-11.0) Red Blood Count 4.04 MIL/MM3 (4.50-5.90) 3.94 MIL/MM3 (4.50-5.90) Hemoglobin 12.8 GM/DL (13.0-17.0) 12.4 GM/DL (13.0-17.0) Hematocrit 38.0 % (39.0-51.0) 36.6 % (39.0-51.0) Neutrophils (%) (Auto) 85.7 % (16.0-70.0) 81.2 % (16.0-70.0) Lymphocytes (%) (Auto) 6.7 % (9.0-44.0) Neutrophils # (Auto) 12.5 TH/MM3 (1.8-7.7) 10.1 TH/MM3 (1.8-7.7) Blood Urea Nitrogen 20 MG/DL (7-18) Potassium Level 3.4 MEQ/L (3.5-5.1) 2.9 MEQ/L (3.5-5.1) Imaging Last Impressions Chest X-Ray 03/27/17 0000 Signed Impressions: Service Date/Time: Monday, March 27, 2017 13:28 - CONCLUSION: 1. Right- sided central line in good position without pneumothorax. 2. Left basilar atelectasis. Alf Floyd Jr., MD Abdomen X-Ray 03/27/17 0000 Signed Impressions: Service Date/Time: Monday, March 27, 2017 07:45 - CONCLUSION: Unchanged dilatation of the small bowel in a pattern suggesting small bowel obstruction. Alf Floyd Jr., MD PE at Discharge GENERAL: Very pleasant 61 yo male, well nourished well developed patient, appears in nad. CARDIOVASCULAR: Regular rate and rhythm. RESPIRATORY: No accessory muscle use. Clear to auscultation. Breath sounds equal bilaterally. GASTROINTESTINAL: Abdomen soft, non-tender, nondistended. Abd binder in place. MUSCULOSKELETAL: Extremities without clubbing, cyanosis, or edema. No obvious deformities. NEUROLOGICAL: Awake and alert. No obvious cranial nerve deficits. Motor grossly within normal limits. Five out of 5 muscle strength in the arms and legs. Normal speech. PSYCHIATRIC: Appropriate mood and affect; insight and judgment normal. Pt update on day of discharge Tolerated food. No events overnight. Cleared by surgeon for DC. To f/u as oP Hospital Course 61 year old male with abdominal pain; s/p small bowel anastomosis Septic shock Acute massive necrosis of intestine Acute respiratory failure Metabolic acidosis SBO (small bowel obstruction) Acute renal failure Respiratory failure was intubated and extubated 03/29. Hypokalemia -s/p small bowel anastomosis by Dr Britton -Advance diet to full liquid diet -pain management with [place] and breakthrough Morphine IV, pain is controlled and patient is barely using pain meds -stop IVF as noted with LE edema. Give lasix 20 mg if need .patient refusing lasix at this time. he is ambulating and has a good urine OP. -DC antibiotics -NGT tube was removed, diet advanced per surgeon. Patient tolerates food K is 3.7 at discharge -Replace potassium, monitor and replace as need. Gen surg ff Patient improved significantly was able to tolerate food. cleared by surgeon for DC . Patient to follow up as OP with PCP and consultants. Pt Condition on Discharge: Stable Discharge Disposition: Disch w/ Home Health Serv Discharge Time: > 30 minutes Discharge Instructions DIET: Follow Instructions for: As Tolerated, No Restrictions Activities you can perform: Regular-No Restrictions Follow up Referrals: PCP Follow-up - 2-3 Days Surgical - 1 Week with Manuel Britton MD New Medications: Hydrocodone-Acetaminophen ([place]) 5-325 mg Tab 1 TAB PO Q6H PRN for PAIN, #20 TAB 0 Refills Lactobacillus Acidophilus (Acidophilus/l-Sporogenes) 35 Million Cell-25 Million Cell Tab 1 TAB PO Q12HR for diarrhea , #30 TAB Maribeth Singleton MD Apr 02, 2017 17:28
--- NOTE | 2017-04-02 17:30 | HHI.FF ---
Face to Face Verification Diagnosis: (1) Acute respiratory failure (2) Septic shock (3) Acute renal failure (4) SBO (small bowel obstruction) (5) Acute massive necrosis of intestine (6) Metabolic acidosis (7) Elevated WBC count (8) Abdominal pain, acute (9) Ischemic necrosis of small bowel Home Health Nursing Order: Medical education Signs/symptoms of disease process Medication education-adverse effect Nursing assessment with vital signs I have seen patient Manuel Camilo on 04/02/17. My clinical findings support the need for the requested home health care services because: Ltd mobility - disease progression I certify that my clinical findings support that this patient is homebound because: Post-op weakness Maribeth Singleton MD Apr 02, 2017 17:30
[2017-04-02 20:00] VITALS: BP 137/82; PULSE 86; RESP 22; TEMP 98.2; O2SAT 95
[2017-04-02] MEDS: POTASSIUM CHLORIDE 20 MEQ CONTROLLED RELEASE TAB PO SCH (20:10)
[2017-04-02 20:20] VITALS: O2SAT 96
[2017-04-03] VITALS: BP 146/86; PULSE 76; RESP 22; TEMP 98.4; O2SAT 94
[2017-04-03] MEDS: PCA - TOTAL MG MORPHINE DELIVERED PER SHIFT SCH (06:00)
--- NOTE | 2017-04-03 07:15 | HHI.PR ---
Subjective Subjective Notes feeling better, tolerated diet, bowels loose Objective Vitals/I&O Vital Signs Date Time Temp Pulse Resp B/P (MAP) Pulse Ox O2 Delivery O2 Flow Rate FiO2 04/03/17 00:00 98.4 76 22 146/86 (106) 94 04/02/17 20:20 21 04/01/17 07:40 Nasal Cannula 2.00 Labs Laboratory Tests Test 04/02/17 10:12 White Blood Count 12.5 Red Blood Count 3.94 Hemoglobin 12.4 Hematocrit 36.6 Mean Corpuscular Volume 93.0 Mean Corpuscular Hemoglobin 31.6 Mean Corpuscular Hemoglobin Concent 34.0 Red Cell Distribution Width 13.1 Platelet Count 187 Mean Platelet Volume 10.4 Neutrophils (%) (Auto) 81.2 Lymphocytes (%) (Auto) 10.6 Monocytes (%) (Auto) 6.5 Eosinophils (%) (Auto) 1.6 Basophils (%) (Auto) 0.1 Neutrophils # (Auto) 10.1 Lymphocytes # (Auto) 1.3 Monocytes # (Auto) 0.8 Eosinophils # (Auto) 0.2 Basophils # (Auto) 0.0 CBC Comment DIFF FINAL Differential Comment Blood Urea Nitrogen 16 Creatinine 0.68 Random Glucose 89 Calcium Level 8.0 Magnesium Level 2.1 Sodium Level 140 Potassium Level 2.9 Chloride Level 104 Carbon Dioxide Level 27.5 Anion Gap 9 Estimat Glomerular Filtration Rate 119 Date/Time Source Procedure Growth Status 03/27/17 05:36 Blood Peripheral Aerobic Blood Culture - Final NO GROWTH IN 5 DAYS Complete 03/27/17 05:36 Blood Peripheral Anaerobic Blood Culture - Final NO GROWTH IN 5 DAYS Complete Abdomen: Non-distended, Non-tender, BS normal Wound Wound : Wound Location: Abdomen Appearance: Clean & Dry Dressing: Dry A/P Problem List: (1) Abdominal pain, acute ICD Codes: R10.9 - Unspecified abdominal pain Status: Acute (2) Elevated WBC count ICD Codes: D72.829 - Elevated white blood cell count, unspecified (3) SBO (small bowel obstruction) ICD Codes: K56.609 - Unspecified intestinal obstruction, unspecified as to partial versus complete obstruction Status: Acute (4) Abnormal CT of the abdomen ICD Codes: R93.5 - Abnormal findings on diagnostic imaging of other abdominal regions, including retroperitoneum Status: Acute Assessment and Plan POD 5 small bowel anastomosis doing well regular diet oob K home later today if tolerating diet. rx for norco on chart FU Thursday for staple removal. Problem Qualifiers (1) Elevated WBC count: Qualified Codes: D72.825 - Bandemia Manuel Britton MD Apr 03, 2017 07:15
[2017-04-03 08:00] VITALS: BP 153/89; PULSE 79; RESP 17; TEMP 98.3; O2SAT 97
[2017-04-03] MEDS: CHLORHEXIDINE 0.12% (ORAL KIT) 15 ML CUP MT SCH (08:00)
[2017-04-03 08:48] LABS: AUTOMATED NEUTROPHIL # 13.3 TH/MM3 (1.8-7.7); BASOPHIL # 0.1 TH/MM3 (0-0.2); BASOPHIL % 0.5 % (0.0-2.0); EOSINOPHIL # 0.2 TH/MM3 (0-0.4); EOSINOPHIL % 1.1 % (0.0-4.0); HEMATOCRIT 38.9 % (39.0-51.0); LYMPH % 7.6 % (9.0-44.0); LYMPHOCYTE # 1.2 TH/MM3 (1.0-4.8); MEAN CELL VOLUME 93.2 FL (80.0-100.0); MEAN CORPUSCULAR HEMOGLOBIN 31.4 PG (27.0-34.0); MEAN CORPUSCULAR HGB CONC 33.6 % (32.0-36.0); NEUT % 85.8 % (16.0-70.0); PLATELET COUNT 203 TH/MM3 (150-450); RED BLOOD COUNT 4.17 MIL/MM3 (4.50-5.90); RED CELL DISTRIBUTION WIDTH 13.4 % (11.6-17.2); WHITE BLOOD COUNT 15.5 TH/MM3 (4.0-11.0)
[2017-04-03 08:50] LABS: HEMO FLAGS AUTO DIFF
[2017-04-03] MEDS: SODIUM CHLORIDE 0.9% FLUSH 10 ML FLUSH IV FLUSH SCH (09:00)
[2017-04-03 09:05] LABS: BICARBONATE 23.9 MEQ/L (21.0-32.0)
[2017-04-03 09:13] LABS: POTASSIUM 3.7 MEQ/L (3.5-5.1)
[2017-04-03] MEDS: LACTOBACILLUS ACIDOPHILUS TAB PO SCH (09:35)
[2017-04-03] MEDS: POTASSIUM CHLORIDE 20 MEQ CONTROLLED RELEASE TAB PO SCH (09:35)
[2017-04-03 09:53] LABS: PLATELET ESTIMATE SMEAR NORMAL (NORMAL); PLATELET MORPHOLOGY NORMAL (NORMAL); SCAN/DIFF AUTO DIFF CONFIRMED
== END 2017-04-03 12:04 | disposition home health service (06) | DRG 853 ==
LOC: NEDDLT 03:40 → NEPGCP 03:50 → N07B 23:15 → N03B 03-27 12:05 → N07B 03-31 17:12
PROVIDERS: ADMIT Hospitalist; ATTEND Hospitalist
PROC: 0DBA0ZZ Excision of Jejunum, Open Approach (ICD-10-PCS; 2017-03-27)
PROC: 5A1945Z Respiratory Ventilation, 24-96 Consecutive Hours (ICD-10-PCS; 2017-03-27)
PROC: 0DBB0ZZ Excision of Ileum, Open Approach (ICD-10-PCS; principal; 2017-03-27 10:30)
PROC: 0D1A0ZB Bypass Jejunum to Ileum, Open Approach (ICD-10-PCS; 2017-03-29)
DX: A41.9 Sepsis, unspecified organism (principal); K55.021 Focal (segmental) acute infarction of small intestine; J96.00 Acute respiratory failure, unspecified whether with hypoxia or hypercapnia; R65.21 Severe sepsis with septic shock; N17.9 Acute kidney failure, unspecified; E87.2 Acidosis; F17.210 Nicotine dependence, cigarettes, uncomplicated; E86.0 Dehydration; E87.6 Hypokalemia
CPT/HCPCS: 71010; 74000; 74177; 76937; 80048; 80053; 80076; 81001; 82805; 83605; 83690; 83735; 84100; 84155; 85007; 85025; 85027; 86850; 86900; 86901; 86920; 87040; 87641; 88307; 93005; 94002; 94003; 94150; 96374; 96375; C1765; C9113; J1100; J2250; J2270; J2370; J2405; J2543; J3010; J7030; J7040; J7050; J7060; J7120; Q9967